=== PATIENT | male | born 1955 | race Hispanic/Latino ===

== ENCOUNTER 2021-10-05 14:48 | Inpatient (IN) | payer MEDICAID ==
[2021-10-06] MEDS: traZODone 50 MG TAB PO SCH ×2 (00:22→22:00)
[2021-10-06 01:17] LABS: Basophils # (Auto) 0.1 K/mm3 (0.0-0.1); Basophils % (Auto) 1.1 % (0.0-1.8); Eosinophils # (Auto) 0.3 K/mm3 (0.0-0.4); Eosinophils % (Auto) 3.7 % (0.0-4.3); Hematocrit 39.9 % (35.5-45.6); Hemoglobin 13.3 gm/dl (11.8-15.2); Lymphocytes # (Auto) 2.4 K/mm3 (1.2-5.4); Lymphocytes % (Auto) 28.3 % (13.4-35.0); Mean Corpuscular HGB Conc 33 % (32-34); Mean Corpuscular Volume 94 fl (84-94); Monocytes # (Auto) 0.9 K/mm3 (0.0-0.8); Monocytes % (Auto) 10.8 % (0.0-7.3); Platelet Count 190 K/mm3 (140-440); Red Blood Count 4.27 M/mm3 (3.65-5.03); Red Cell Distribution Width 13.4 % (13.2-15.2)
[2021-10-06 02:24] LABS: Alanine Aminotransferase 19 units/L (7-56); Albumin 3.8 g/dL (3.9-5); Blood Urea Nitrogen 17 mg/dL (9-20); Calcium 9.4 mg/dL (8.4-10.2); Hemolysis Index 11
[2021-10-06 02:26] LABS: BUN/Creatinine Ratio 24
[2021-10-06 02:43] LABS: Chol/HDL Ratio 4.56 %; HDL Cholesterol 48 mg/dL (40-59); LDL Cholesterol,Direct 161 mg/dL (50-130)
[2021-10-06] MEDS: NICOTINE 21 MG/24 HR PATCH TD SCH (09:50)
--- NOTE | 2021-10-06 11:23 | Consultation ---
History of Present Illness - Reason for Consult Consult date: 10/06/21 Medical management Requesting physician: NAYELI CARRASCO - History of Present Illness 65 YO Male with Vascular Dementia with behavioral disturbance, Cerebral Atherosclerosis, HTN, HLD, Mild Intermittent Asthma, Nicotine Dependence, Schizophrenia, Bipolar Disorder admitted to [facility] psych unit for psychiatric stabilization. Patient seen and evaluated in the recreation room. Patient denies fever, chills, chest pain, palpitation, adductive cough, skin rash and recent contact, no supportive COVID-19. Patient appears to be at baseline level of cognition and function. No reported nursing events. Past History Past Medical History: hypertension, hyperlipidemia, other (See HPI) Past Surgical History: No surgical history, Other (Reviewed) Social history: single. denies: smoking, alcohol abuse Family history: hypertension Medications and Allergies Allergies Allergy/AdvReac Type Severity Reaction Status Date / Time No Known Drug Allergies Allergy Unknown Verified 10/05/21 21:08 Home Medications Medication Instructions Recorded Confirmed Last Taken Type Albuterol Sulfate [Proair 90 mcg IH UNK 10/05/21 10/05/21 Unknown History Digihaler] AtorvaSTATin [Lipitor] 20 mg PO QHS 10/05/21 10/05/21 Unknown History Azithromycin [Zithromax] 250 mg PO QDAY 10/05/21 10/05/21 10/05/21 History Escitalopram [Lexapro] 1.5 tab PO DAILY 10/05/21 10/05/21 Unknown History Fenofibrate 160 mg PO DAILY 10/05/21 10/05/21 Unknown History Memantine [Namenda] 5 mg PO BID 10/05/21 10/05/21 Unknown History OLANzapine [ZyPREXA] 10 mg PO QHS 10/05/21 10/05/21 Unknown History buPROPion [Wellbutrin] 75 mg PO BID 10/05/21 10/05/21 Unknown History Active Meds: Active Medications Nicotine (Nicotine 21 Mg/24 Hr Patch) 21 mg TD QDAY [facility] Last Admin: 10/06/21 09:50 Dose: 21 mg Trazodone HCl (Trazodone 50 Mg Tab) 50 mg PO QHS [facility] Last Admin: 10/06/21 00:22 Dose: Not Given Review of Systems Constitutional: no weight loss, no weight gain, no fever, no chills Ears, nose, mouth and throat: no ear pain, no ear discharge, no tinnitis, no nose pain, no nasal congestion, no nasal discharge Cardiovascular: no chest pain, no palpitations, no rapid/irregular heart beat, no edema Respiratory: no cough, no cough with sputum, no hemoptysis, no shortness of breath Gastrointestinal: no abdominal pain, no nausea, no diarrhea, no constipation, no change in bowel habits Genitourinary Male: no hematuria, no flank pain, no discharge, no urinary frequency, no urinary hesitancy Rectal: no pain, no incontinence, no bleeding Musculoskeletal: no neck stiffness, no neck pain, no arm numbness/tingling, no low back pain, no shooting leg pain Integumentary: no rash, no pruritis, no redness, no sores, no wounds Neurological: no head injury, no weakness, no numbness, no seizures, no syncope Psychiatric: difficulties concentrating, irritability, sadness/tearfullness, mood swings Endocrine: no cold intolerance, no heat intolerance, no excessive thirst, no polydipsia, no polyuria, no nocturia Hematologic/Lymphatic: no easy bruising Allergic/Immunologic: no urticaria Exam - Constitutional Vitals: Temp Pulse Resp BP Pulse Ox 97.4 F L 74 20 143/78 97 10/05/21 21:19 10/05/21 21:19 10/05/21 21:19 10/05/21 21:19 10/05/21 21:19 General appearance: Present: mild distress - EENT Eyes: Present: PERRL ENT: hearing intact, clear oral mucosa - Neck Neck: Present: supple, normal ROM - Respiratory Respiratory effort: normal Respiratory: bilateral: CTA - Cardiovascular Heart Sounds: Present: S1 & S2. Absent: rub, click - Extremities Extremities: pulses symmetrical, No edema Peripheral Pulses: within normal limits - Abdominal General gastrointestinal: Present: soft, non-tender, non-distended, normal bowel sounds Male genitourinary: Present: normal - Integumentary Integumentary: Present: clear, warm, dry - Musculoskeletal Musculoskeletal: gait normal, strength equal bilaterally - Psychiatric Psychiatric: appropriate mood/affect, intact judgment & insight - Neurologic Neurologic: CNII-XII intact, moves all extremities Results - Labs CBC & Chem 7: 10/06/21 00:50 10/06/21 00:50 Labs: Abnormal lab results 10/06/21 10/06/21 10/06/21 Range/Units 00:50 00:50 06:47 [place] % (Auto) 10.8 H (0.0-7.3) % [place] # (Auto) 0.9 H (0.0-0.8) K/mm3 Creatinine 0.7 L (0.8-1.3) mg/dL POC Glucose 109 H (70-105) mg/dL Albumin 3.8 L (3.9-5) g/dL Cholesterol 219 H (50-199) mg/dL LDL Cholesterol Direct 161 H (50-130) mg/dL Assessment and Plan - Patient Problems (1) Vascular dementia with behavioral disturbance Current Visit: Yes Status: Acute Plan to address problem: Verbal prompting, verbal redirection, benzodiazepine therapy as clinically indicated. (2) Cerebral atherosclerosis Current Visit: Yes Status: Acute Plan to address problem: Risk factor reduction, antiplatelet therapy as clinically indicated. (3) Hypertension Current Visit: Yes Status: Acute Qualifiers: Hypertension type: primary hypertension Qualified Code(s): I10 - Essential (primary) hypertension Plan to address problem: Monitor blood pressure every shift, continue medical management (4) Hyperlipidemia Current Visit: Yes Status: Acute Qualifiers: Hyperlipidemia type: mixed hyperlipidemia Qualified Code(s): E78.2 - Mixed hyperlipidemia Plan to address problem: Statin therapy, supportive care. (5) Asthma Current Visit: Yes Status: Acute Plan to address problem: No acute exacerbation at this time, supportive care, bronchodilator therapy as clinically indicated. (6) Bipolar disorder Current Visit: Yes Status: Acute Plan to address problem: Continue medical management, supportive care. (7) Schizophrenia Current Visit: Yes Status: Acute Qualifiers: Schizophrenia type: other Qualified Code(s): F20.89 - Other schizophrenia; F20.8 - Other schizophrenia Plan to address problem: Continue medical medical management, supportive care. (8) Advance care planning Current Visit: Yes Status: Acute Plan to address problem: Disease education data, care plan discussed, diagnosis discussed, prognosis discussed, patient is full code, +30 minutes. (9) Preventative health care Current Visit: Yes Status: Acute Plan to address problem: Patient counseled regarding smoking cessation, risk factor reduction, outpatient follow-up with primary care physician for all age and risk factor appropriate screening test. +30 minutes. (10) Nicotine dependence Current Visit: Yes Status: Acute Qualifiers: Nicotine product type: cigarettes Substance use status: in withdrawal Qualified Code(s): F17.213 - Nicotine dependence, cigarettes, with withdrawal Plan to address problem: Smoke cessation counseled, nicotine transdermal patch daily, remove nightly
--- NOTE | 2021-10-06 13:23 | History and Physical Report ---
GP History & Physical - History of Present Illness Date of admission: 10/05/21 Date of Examination: 10/06/21 Reason for Admission: Danger to self, Failure of Outpatient Treatment, Severe anxiety/depression History of Present Illness: The patient was seen today. He says he was admitted for having bad thoughts, hearing things and feeling suicidal. He says he can't make out the voices, but says "it's just stuff I'm hearing." He denies a plan to harm himself. He endorses feeling depressed. He says he has a history of schizophrenia. The patient could not recall any of his meds. He denies any illicit drug use, alcohol or nicotine. PAST PSYCHIATRIC HISTORY: Diagnoses: schizophrenia Suicide attempts or Self-harm behavior: Yes Prior psychiatric hospitalizations: Denies Substance Abuse history: Denies Previous psychiatric medications tried: Could not recall Outpatient treatment: Yes PAST MEDICAL HISTORY: Family Psychiatric History: None reported SOCIAL HISTORY Marital Status: Living Arrangements: Alone Employment Status: Disabled Access to guns/weapons: Denies Education: History of Abuse: Denies Legal History: REVIEW OF SYSTEMS Constitutional: Negative for weight loss ENT: Negative for stridor Respiratory: Negative for cough or hemoptysis All other systems reviewed and are negative MENTAL STATUS General Appearance and Behavior: age appropriate, good eye contact, cooperative with questioning and polite Cooperation: Cooperative Psychomotor Behavior: within normal limits Mood: depressed Affect and affective range: Congruent with stated mood Thought Process: goal directed Thought Content: hallucinations Speech: Normal volume and Regular rate and rhythm Intellectual Functioning Average Suicidal Ideation: Yes Homicidal Ideation: Denies HI Hallucinations: Auditory Impulse Control: intact Insight and Judgment: Limited Memory: Normal Attention: Normal Orientation: alert and oriented Assessment Schizophrenia Treatment Plan Patient will be admitted for inpatient psychiatric evaluation, medication adjustment and close monitoring The patient's behavior, mood, sleep and appetite will be closely monitored. Patient will be enrolled in individual and group therapeutic sessions and encouraged to attend. Patient will be provided with a safe and structured environment. Patient's physical health needs will be addressed by the Hospitalist. Ho spitalist Consulted Labs including CBC, CMP, Lipid profile and Hemoglobin A1C ordered Social Assessment will be completed and the Pyridine Recovery Operator will work with patient and family to ensure a suitable and safe disposition Medication adjustment will be made as clinically indicated Restarted meds Usual Wellness Mormonism/Preservation: - Start Trazodone 50 mg po QHS PRN The patient agreed on the treatment plan, understood the risk, benefit, alternative treatment, potential consequence of no treatment, and gave informed consent. Legal Status: Voluntary Reaction to Hospitalization: Accepting Medications and Allergies Allergies Allergy/AdvReac Type Severity Reaction Status Date / Time No Known Drug Allergies Allergy Unknown Verified 10/05/21 21:08 Home Medications Medication Instructions Recorded Confirmed Last Taken Type Albuterol Sulfate [Proair 90 mcg IH UNK 10/05/21 10/05/21 Unknown History Digihaler] AtorvaSTATin [Lipitor] 20 mg PO QHS 10/05/21 10/05/21 Unknown History Azithromycin [Zithromax] 250 mg PO QDAY 10/05/21 10/05/21 10/05/21 History Escitalopram [Lexapro] 1.5 tab PO DAILY 10/05/21 10/05/21 Unknown History Fenofibrate 160 mg PO DAILY 10/05/21 10/05/21 Unknown History Memantine [Namenda] 5 mg PO BID 10/05/21 10/05/21 Unknown History OLANzapine [ZyPREXA] 10 mg PO QHS 10/05/21 10/05/21 Unknown History buPROPion [Wellbutrin] 75 mg PO BID 10/05/21 10/05/21 Unknown History Active Meds: Active Medications Nicotine (Nicotine 21 Mg/24 Hr Patch) 21 mg TD QDAY [facility] Last Admin: 10/06/21 09:50 Dose: 21 mg Trazodone HCl (Trazodone 50 Mg Tab) 50 mg PO QHS [facility] Last Admin: 10/06/21 00:22 Dose: Not Given Results - Results Labs/Vitals: Laboratory Last Values WBC 8.5 K/mm3 (4.5-11.0) 10/06/21 00:50 RBC 4.27 M/mm3 (3.65-5.03) 10/06/21 00:50 Hgb 13.3 gm/dl (11.8-15.2) 10/06/21 00:50 Hct 39.9 % (35.5-45.6) 10/06/21 00:50 MCV 94 fl (84-94) 10/06/21 00:50 MCH 31 pg (28-32) 10/06/21 00:50 MCHC 33 % (32-34) 10/06/21 00:50 RDW 13.4 % (13.2-15.2) 10/06/21 00:50 Plt Count 190 K/mm3 (140-440) 10/06/21 00:50 Lymph % (Auto) 28.3 % (13.4-35.0) 10/06/21 00:50 [place] % (Auto) 10.8 % (0.0-7.3) H 10/06/21 00:50 Eos % (Auto) 3.7 % (0.0-4.3) 10/06/21 00:50 Baso % (Auto) 1.1 % (0.0-1.8) 10/06/21 00:50 Lymph # (Auto) 2.4 K/mm3 (1.2-5.4) 10/06/21 00:50 [place] # (Auto) 0.9 K/mm3 (0.0-0.8) H 10/06/21 00:50 Eos # (Auto) 0.3 K/mm3 (0.0-0.4) 10/06/21 00:50 Baso # (Auto) 0.1 K/mm3 (0.0-0.1) 10/06/21 00:50 Seg Neutrophils % 56.1 % (40.0-70.0) 10/06/21 00:50 Seg Neutrophils # 4.8 K/mm3 (1.8-7.7) 10/06/21 00:50 Sodium 140 mmol/L (137-145) 10/06/21 00:50 Potassium 4.2 mmol/L (3.6-5.0) 10/06/21 00:50 Chloride 102.7 mmol/L (98-107) 10/06/21 00:50 Carbon Dioxide 26 mmol/L (22-30) 10/06/21 00:50 Anion Gap 16 mmol/L 10/06/21 00:50 BUN 17 mg/dL (9-20) 10/06/21 00:50 Creatinine 0.7 mg/dL (0.8-1.3) L 10/06/21 00:50 Estimated GFR > 60 ml/min 10/06/21 00:50 BUN/Creatinine Ratio 24 % 10/06/21 00:50 Glucose 91 mg/dL (75-100) 10/06/21 00:50 POC Glucose 109 mg/dL (70-105) H 10/06/21 06:47 Hemoglobin A1c 5.5 % (4-6) 10/06/21 00:50 Calcium 9.4 mg/dL (8.4-10.2) 10/06/21 00:50 Total Bilirubin 0.20 mg/dL (0.1-1.2) 10/06/21 00:50 AST 16 units/L (5-40) 10/06/21 00:50 ALT 19 units/L (7-56) 10/06/21 00:50 Alkaline Phosphatase 74 units/L (35-129) 10/06/21 00:50 Total Protein 6.8 g/dL (6.3-8.2) 10/06/21 00:50 Albumin 3.8 g/dL (3.9-5) L 10/06/21 00:50 Albumin/Globulin Ratio 1.3 % 10/06/21 00:50 Triglycerides 104 mg/dL (2-149) 10/06/21 00:50 Cholesterol 219 mg/dL (50-199) H 10/06/21 00:50 LDL Cholesterol Direct 161 mg/dL (50-130) H 10/06/21 00:50 HDL Cholesterol 48 mg/dL (40-59) 10/06/21 00:50 Cholesterol/HDL Ratio 4.56 % 10/06/21 00:50 TSH 1.600 mlU/mL (0.270-4.200) 10/06/21 00:50 Last Vital Signs Temp 97.4 F L 10/05/21 21:19 Pulse 74 10/05/21 21:19 Resp 20 10/05/21 21:19 BP 143/78 10/05/21 21:19 Pulse Ox 97 10/05/21 21:19 Physical Examination - Constitutional Vitals: Vital Signs Temp Pulse Resp BP Pulse Ox 97.4 F L 74 20 143/78 97 10/05/21 21:19 10/05/21 21:19 10/05/21 21:19 10/05/21 21:19 10/05/21 21:19 Temperature -Last 24 Hours Temperature 97.4 F Mental Status Exam - Vital signs Last Vital Signs Temp 97.4 F L 10/05/21 21:19 Pulse 74 10/05/21 21:19 Resp 20 10/05/21 21:19 BP 143/78 10/05/21 21:19 Pulse Ox 97 10/05/21 21:19 Physician Certification - Certification Statement Physician Certification Statement: This is an acknowledgement statement that JESUS BOOTH is a 65 year old M who requires inpatient psychiatric admission for treatment which could reasonably be expected to improve the patient's condition for Estimated period of time patient will need to remain in the hospital: [ ] Plan for post-hospital care: [ ]
[2021-10-06] MEDS ORDERED: NON-FORMULARY EACH (Albuterol Sulfate [Proair Digihaler] 90 MCG Aer.Pw.Bas) IH SCH (13:30)
[2021-10-06] MEDS ORDERED: ALBUTEROL 2.5 MG/3 ML NEBU IH PRN (13:36)
[2021-10-06] MEDS: ACETAMINOPHEN 325 MG TAB PO PRN (17:58)
[2021-10-06] MEDS: MEMANTINE 5 MG TAB PO SCH (22:00)
[2021-10-06] MEDS: buPROPion 75 MG TAB PO SCH (22:00)
[2021-10-07] MEDS: NICOTINE 21 MG/24 HR PATCH TD SCH (09:53)
[2021-10-07] MEDS: MEMANTINE 5 MG TAB PO SCH ×2 (09:53→21:52)
[2021-10-07] MEDS: ESCITALOPRAM 10 MG TAB PO SCH (09:53)
[2021-10-07] MEDS ORDERED: NON-FORMULARY EACH (Fenofibrate [Fenofibrate] 160 MG Tablet) PO SCH (10:00)
[2021-10-07] MEDS: buPROPion 75 MG TAB PO SCH ×2 (10:02→21:52)
[2021-10-07] MEDS: FENOFIBRATE 145 MG TAB PO SCH (10:36)
--- NOTE | 2021-10-07 16:39 | Progress Note ---
Subjective Date of service: 10/07/21 Principal diagnosis: Schizophrenia Subjective Comment: The patient was seen today. He says he's doing a little better. He says he slept good. The patient says he's still hearing voices but can't make them out. He endorses being depressed, but denies SI/HI. REVIEW OF SYSTEMS Constitutional: Negative for weight loss ENT: Negative for stridor Respiratory: Negative for cough or hemoptysis All other systems reviewed and are negative MENTAL STATUS General Appearance and Behavior: age appropriate, good eye contact, cooperative with questioning and polite Cooperation: Cooperative Psychomotor Behavior: within normal limits Mood: depressed Affect and affective range: Congruent with stated mood Thought Process: goal directed Thought Content: hallucinations Speech: Normal volume and Regular rate and rhythm Intellectual Functioning Average Suicidal Ideation: Denies Homicidal Ideation: Denies HI Hallucinations: Auditory Impulse Control: intact Insight and Judgment: Limited Memory: Normal Attention: Normal Orientation: alert and oriented Assessment Schizophrenia Treatment Plan Patient will be admitted for inpatient psychiatric evaluation, medication adjustment and close monitoring The patient's behavior, mood, sleep and appetite will be closely monitored. Patient will be enrolled in individual and group therapeutic sessions and encouraged to attend. Patient will be provided with a safe and structured environment. Patient's physical health needs will be addressed by the Hospitalist. Hospitalist Consulted Labs including CBC, CMP, Lipid profile and Hemoglobin A1C ordered Social Assessment will be completed and the Finance Intern will work with patient and family to ensure a suitable and safe disposition Medication adjustment will be made as clinically indicated Increase Olanzapine 15mg po qhs Usual Wellness Jewish/Preservation: - Start Trazodone 50 mg po QHS PRN The patient agreed on the treatment plan, understood the risk, benefit, alternative treatment, potential consequence of no treatment, and gave informed consent. Case staffed with Dr. Garg Medications and Allergies Allergies Allergy/AdvReac Type Severity Reaction Status Date / Time No Known Drug Allergies Allergy Unknown Verified 10/05/21 21:08 Home Medications Medication Instructions Recorded Confirmed Last Taken Type Albuterol Sulfate [Proair 90 mcg IH UNK 10/05/21 10/05/21 Unknown History Digihaler] AtorvaSTATin [Lipitor] 20 mg PO QHS 10/05/21 10/05/21 Unknown History Azithromycin [Zithromax] 250 mg PO QDAY 10/05/21 10/05/21 10/05/21 History Escitalopram [Lexapro] 1.5 tab PO DAILY 10/05/21 10/05/21 Unknown History Fenofibrate 160 mg PO DAILY 10/05/21 10/05/21 Unknown History Memantine [Namenda] 5 mg PO BID 10/05/21 10/05/21 Unknown History OLANzapine [ZyPREXA] 10 mg PO QHS 10/05/21 10/05/21 Unknown History buPROPion [Wellbutrin] 75 mg PO BID 10/05/21 10/05/21 Unknown History Active Meds: Active Medications Acetaminophen (Acetaminophen 325 Mg Tab) 650 mg PO Q6H PRN PRN Reason: Pain, Mild (1-3) Last Admin: 10/06/21 17:58 Dose: 650 mg Albuterol (Albuterol 2.5 Mg/3 Ml Nebu) 2.5 mg IH Q4H PRN PRN Reason: Shortness Of Breath Atorvastatin Calcium (Atorvastatin 20 Mg Tab) 20 mg PO QHS [facility] Last Admin: 10/06/21 22:00 Dose: 20 mg Bupropion HCl (Bupropion 75 Mg Tab) 75 mg PO BID [facility] Last Admin: 10/07/21 10:02 Dose: 75 mg Escitalopram Oxalate (Escitalopram 10 Mg Tab) 15 mg PO DAILY [facility] Last Admin: 10/07/21 09:53 Dose: 15 mg Fenofibrate (Fenofibrate 145 Mg Tab) 145 mg PO DAILY [facility] Last Admin: 10/07/21 10:36 Dose: 145 mg Memantine (Memantine 5 Mg Tab) 5 mg PO BID [facility] Last Admin: 10/07/21 09:53 Dose: 5 mg Nicotine (Nicotine 21 Mg/24 Hr Patch) 21 mg TD QDAY [facility] Last Admin: 10/07/21 09:53 Dose: 21 mg Olanzapine (Olanzapine 10 Mg Tab) 10 mg PO QHS [facility] Last Admin: 10/06/21 22:00 Dose: 10 mg Trazodone HCl (Trazodone 50 Mg Tab) 50 mg PO QHS [facility] Last Admin: 10/06/21 22:00 Dose: 50 mg Results - Results Labs/Vitals: Laboratory Last Values WBC 8.5 K/mm3 (4.5-11.0) 10/06/21 00:50 RBC 4.27 M/mm3 (3.65-5.03) 10/06/21 00:50 Hgb 13.3 gm/dl (11.8-15.2) 10/06/21 00:50 Hct 39.9 % (35.5-45.6) 10/06/21 00:50 MCV 94 fl (84-94) 10/06/21 00:50 MCH 31 pg (28-32) 10/06/21 00:50 MCHC 33 % (32-34) 10/06/21 00:50 RDW 13.4 % (13.2-15.2) 10/06/21 00:50 Plt Count 190 K/mm3 (140-440) 10/06/21 00:50 Lymph % (Auto) 28.3 % (13.4-35.0) 10/06/21 00:50 [place] % (Auto) 10.8 % (0.0-7.3) H 10/06/21 00:50 Eos % (Auto) 3.7 % (0.0-4.3) 10/06/21 00:50 Baso % (Auto) 1.1 % (0.0-1.8) 10/06/21 00:50 Lymph # (Auto) 2.4 K/mm3 (1.2-5.4) 10/06/21 00:50 [place] # (Auto) 0.9 K/mm3 (0.0-0.8) H 10/06/21 00:50 Eos # (Auto) 0.3 K/mm3 (0.0-0.4) 10/06/21 00:50 Baso # (Auto) 0.1 K/mm3 (0.0-0.1) 10/06/21 00:50 Seg Neutrophils % 56.1 % (40.0-70.0) 10/06/21 00:50 Seg Neutrophils # 4.8 K/mm3 (1.8-7.7) 10/06/21 00:50 Sodium 140 mmol/L (137-145) 10/06/21 00:50 Potassium 4.2 mmol/L (3.6-5.0) 10/06/21 00:50 Chloride 102.7 mmol/L (98-107) 10/06/21 00:50 Carbon Dioxide 26 mmol/L (22-30) 10/06/21 00:50 Anion Gap 16 mmol/L 10/06/21 00:50 BUN 17 mg/dL (9-20) 10/06/21 00:50 Creatinine 0.7 mg/dL (0.8-1.3) L 10/06/21 00:50 Estimated GFR > 60 ml/min 10/06/21 00:50 BUN/Creatinine Ratio 24 % 10/06/21 00:50 Glucose 91 mg/dL (75-100) 10/06/21 00:50 POC Glucose 109 mg/dL (70-105) H 10/06/21 06:47 Hemoglobin A1c 5.5 % (4-6) 10/06/21 00:50 Calcium 9.4 mg/dL (8.4-10.2) 10/06/21 00:50 Total Bilirubin 0.20 mg/dL (0.1-1.2) 10/06/21 00:50 AST 16 units/L (5-40) 10/06/21 00:50 ALT 19 units/L (7-56) 10/06/21 00:50 Alkaline Phosphatase 74 units/L (35-129) 10/06/21 00:50 Total Protein 6.8 g/dL (6.3-8.2) 10/06/21 00:50 Albumin 3.8 g/dL (3.9-5) L 10/06/21 00:50 Albumin/Globulin Ratio 1.3 % 10/06/21 00:50 Triglycerides 104 mg/dL (2-149) 10/06/21 00:50 Cholesterol 219 mg/dL (50-199) H 10/06/21 00:50 LDL Cholesterol Direct 161 mg/dL (50-130) H 10/06/21 00:50 HDL Cholesterol 48 mg/dL (40-59) 10/06/21 00:50 Cholesterol/HDL Ratio 4.56 % 10/06/21 00:50 TSH 1.600 mlU/mL (0.270-4.200) 10/06/21 00:50 Last Vital Signs Temp 97.8 F 10/07/21 09:41 Pulse 98 H 10/07/21 09:41 Resp 16 10/07/21 09:41 BP 129/82 10/07/21 09:41 Pulse Ox 93 10/07/21 09:41
[2021-10-07] MEDS: traZODone 50 MG TAB PO SCH (21:52)
[2021-10-08] MEDS: ESCITALOPRAM 10 MG TAB PO SCH (09:44)
[2021-10-08] MEDS: MEMANTINE 5 MG TAB PO SCH ×2 (09:44→21:50)
[2021-10-08] MEDS: buPROPion 75 MG TAB PO SCH ×2 (09:44→21:50)
[2021-10-08] MEDS: NICOTINE 21 MG/24 HR PATCH TD SCH (09:44)
[2021-10-08] MEDS: FENOFIBRATE 145 MG TAB PO SCH (09:44)
--- NOTE | 2021-10-08 09:46 | Progress Note ---
Subjective Date of service: 10/08/21 Principal diagnosis: Schizophrenia Subjective Comment: The patient was seen today. The patient sill endorses depression, and hearing voices on and off. He says he can't make out the voices. He denies SI/HI. REVIEW OF SYSTEMS Constitutional: Negative for weight loss ENT: Negative for stridor Respiratory: Negative for cough or hemoptysis All other systems reviewed and are negative MENTAL STATUS General Appearance and Behavior: age appropriate, good eye contact, cooperative with questioning and polite Cooperation: Cooperative Psychomotor Behavior: within normal limits Mood: depressed Affect and affective range: Congruent with stated mood Thought Process: goal directed Thought Content: hallucinations Speech: Normal volume and Regular rate and rhythm Intellectual Functioning Average Suicidal Ideation: Denies Homicidal Ideation: Denies HI Hallucinations: Auditory Impulse Control: intact Insight and Judgment: Limited Memory: Normal Attention: Normal Orientation: alert and oriented Assessment Schizophrenia Treatment Plan Patient will be admitted for inpatient psychiatric evaluation, medication adjus tment and close monitoring The patient's behavior, mood, sleep and appetite will be closely monitored. Patient will be enrolled in individual and group therapeutic sessions and encouraged to attend. Patient will be provided with a safe and structured environment. Patient's physical health needs will be addressed by the Hospitalist. Hospitalist Consulted Labs including CBC, CMP, Lipid profile and Hemoglobin A1C ordered Social Assessment will be completed and the Mold Stamper And Repairer will work with patient and family to ensure a suitable and safe disposition Medication adjustment will be made as clinically indicated Increase Olanzapine 15mg po qhs yesterday No changes made today Usual Wellness [employer]/Preservation: - Start Trazodone 50 mg po QHS PRN The patient agreed on the treatment plan, understood the risk, benefit, alternative treatment, potential consequence of no treatment, and gave informed consent. Case staffed with Dr. Garg Medications and Allergies Allergies Allergy/AdvReac Type Severity Reaction Status Date / Time No Known Drug Allergies Allergy Unknown Verified 10/05/21 21:08 Home Medications Medication Instructions Recorded Confirmed Last Taken Type Albuterol Sulfate [Proair 90 mcg IH UNK 10/05/21 10/05/21 Unknown History Digihaler] AtorvaSTATin [Lipitor] 20 mg PO QHS 10/05/21 10/05/21 Unknown History Azithromycin [Zithromax] 250 mg PO QDAY 10/05/21 10/05/21 10/05/21 History Escitalopram [Lexapro] 1.5 tab PO DAILY 10/05/21 10/05/21 Unknown History Fenofibrate 160 mg PO DAILY 10/05/21 10/05/21 Unknown History Memantine [Namenda] 5 mg PO BID 10/05/21 10/05/21 Unknown History OLANzapine [ZyPREXA] 10 mg PO QHS 10/05/21 10/05/21 Unknown History buPROPion [Wellbutrin] 75 mg PO BID 10/05/21 10/05/21 Unknown History Active Meds: Active Medications Acetaminophen (Acetaminophen 325 Mg Tab) 650 mg PO Q6H PRN PRN Reason: Pain, Mild (1-3) Last Admin: 10/06/21 17:58 Dose: 650 mg Albuterol (Albuterol 2.5 Mg/3 Ml Nebu) 2.5 mg IH Q4H PRN PRN Reason: Shortness Of Breath Atorvastatin Calcium (Atorvastatin 20 Mg Tab) 20 mg PO QHS [facility] Last Admin: 10/07/21 21:52 Dose: 20 mg Bupropion HCl (Bupropion 75 Mg Tab) 75 mg PO BID [facility] Last Admin: 10/07/21 21:52 Dose: 75 mg Escitalopram Oxalate (Escitalopram 10 Mg Tab) 15 mg PO DAILY [facility] Last Admin: 10/07/21 09:53 Dose: 15 mg Fenofibrate (Fenofibrate 145 Mg Tab) 145 mg PO DAILY [facility] Last Admin: 10/07/21 10:36 Dose: 145 mg Memantine (Memantine 5 Mg Tab) 5 mg PO BID [facility] Last Admin: 10/07/21 21:52 Dose: 5 mg Nicotine (Nicotine 21 Mg/24 Hr Patch) 21 mg TD QDAY [facility] Last Admin: 10/07/21 09:53 Dose: 21 mg Olanzapine (Olanzapine 7.5 Mg Tab) 15 mg PO QHS [facility] Last Admin: 10/07/21 21:52 Dose: 15 mg Trazodone HCl (Trazodone 50 Mg Tab) 50 mg PO QHS [facility] Last Admin: 10/07/21 21:52 Dose: 50 mg Results - Results Labs/Vitals: Laboratory Last Values WBC 8.5 K/mm3 (4.5-11.0) 10/06/21 00:50 RBC 4.27 M/mm3 (3.65-5.03) 10/06/21 00:50 Hgb 13.3 gm/dl (11.8-15.2) 10/06/21 00:50 Hct 39.9 % (35.5-45.6) 10/06/21 00:50 MCV 94 fl (84-94) 10/06/21 00:50 MCH 31 pg (28-32) 10/06/21 00:50 MCHC 33 % (32-34) 10/06/21 00:50 RDW 13.4 % (13.2-15.2) 10/06/21 00:50 Plt Count 190 K/mm3 (140-440) 10/06/21 00:50 Lymph % (Auto) 28.3 % (13.4-35.0) 10/06/21 00:50 [place] % (Auto) 10.8 % (0.0-7.3) H 10/06/21 00:50 Eos % (Auto) 3.7 % (0.0-4.3) 10/06/21 00:50 Baso % (Auto) 1.1 % (0.0-1.8) 10/06/21 00:50 Lymph # (Auto) 2.4 K/mm3 (1.2-5.4) 10/06/21 00:50 [place] # (Auto) 0.9 K/mm3 (0.0-0.8) H 10/06/21 00:50 Eos # (Auto) 0.3 K/mm3 (0.0-0.4) 10/06/21 00:50 Baso # (Auto) 0.1 K/mm3 (0.0-0.1) 10/06/21 00:50 Seg Neutrophils % 56.1 % (40.0-70.0) 10/06/21 00:50 Seg Neutrophils # 4.8 K/mm3 (1.8-7.7) 10/06/21 00:50 Sodium 140 mmol/L (137-145) 10/06/21 00:50 Potassium 4.2 mmol/L (3.6-5.0) 10/06/21 00:50 Chloride 102.7 mmol/L (98-107) 10/06/21 00:50 Carbon Dioxide 26 mmol/L (22-30) 10/06/21 00:50 Anion Gap 16 mmol/L 10/06/21 00:50 BUN 17 mg/dL (9-20) 10/06/21 00:50 Creatinine 0.7 mg/dL (0.8-1.3) L 10/06/21 00:50 Estimated GFR > 60 ml/min 10/06/21 00:50 BUN/Creatinine Ratio 24 % 10/06/21 00:50 Glucose 91 mg/dL (75-100) 10/06/21 00:50 POC Glucose 109 mg/dL (70-105) H 10/06/21 06:47 Hemoglobin A1c 5.5 % (4-6) 10/06/21 00:50 Calcium 9.4 mg/dL (8.4-10.2) 10/06/21 00:50 Total Bilirubin 0.20 mg/dL (0.1-1.2) 10/06/21 00:50 AST 16 units/L (5-40) 10/06/21 00:50 ALT 19 units/L (7-56) 10/06/21 00:50 Alkaline Phosphatase 74 units/L (35-129) 10/06/21 00:50 Total Protein 6.8 g/dL (6.3-8.2) 10/06/21 00:50 Albumin 3.8 g/dL (3.9-5) L 10/06/21 00:50 Albumin/Globulin Ratio 1.3 % 10/06/21 00:50 Triglycerides 104 mg/dL (2-149) 10/06/21 00:50 Cholesterol 219 mg/dL (50-199) H 10/06/21 00:50 LDL Cholesterol Direct 161 mg/dL (50-130) H 10/06/21 00:50 HDL Cholesterol 48 mg/dL (40-59) 10/06/21 00:50 Cholesterol/HDL Ratio 4.56 % 10/06/21 00:50 TSH 1.600 mlU/mL (0.270-4.200) 10/06/21 00:50 Last Vital Signs Temp 97.5 F L 10/07/21 19:53 Pulse 85 10/07/21 19:53 Resp 18 10/07/21 19:53 BP 150/76 10/07/21 19:53 Pulse Ox 93 10/07/21 19:53
--- NOTE | 2021-10-08 20:01 | Progress Note ---
Assessment and Plan - Patient Problems (1) Vascular dementia with behavioral disturbance Current Visit: Yes Status: Acute Plan to address problem: Verbal prompting, verbal redirection, benzodiazepine therapy as clinically indicated. (2) Cerebral atherosclerosis Current Visit: Yes Status: Acute Plan to address problem: Risk factor reduction, antiplatelet therapy as clinically indicated. (3) Hypertension Current Visit: Yes Status: Acute Qualifiers: Hypertension type: primary hypertension Qualified Code(s): I10 - Essential (primary) hypertension Plan to address problem: Monitor blood pressure every shift, continue medical management (4) Hyperlipidemia Current Visit: Yes Status: Acute Qualifiers: Hyperlipidemia type: mixed hyperlipidemia Qualified Code(s): E78.2 - Mixed hyperlipidemia Plan to address problem: Statin therapy, supportive care. (5) Asthma Current Visit: Yes Status: Acute Plan to address problem: No acute exacerbation at this time, supportive care, bronchodilator therapy as clinically indicated. (6) Bipolar disorder Current Visit: Yes Status: Acute Plan to address problem: Continue medical management, supportive care. (7) Schizophrenia Current Visit: Yes Status: Acute Qualifiers: Schizophrenia type: other Qualified Code(s): F20.89 - Other schizophrenia; F20.8 - Other schizophrenia Plan to address problem: Continue medical medical management, supportive care. (8) Advance care planning Current Visit: Yes Status: Acute Plan to address problem: Disease education data, care plan discussed, diagnosis discussed, prognosis discussed, patient is full code, +30 minutes. (9) Preventative health care Current Visit: Yes Status: Acute Plan to address problem: Patient counseled regarding smoking cessation, risk factor reduction, outpatient follow-up with primary care physician for all age and risk factor appropriate screening test. +30 minutes. (10) Nicotine dependence Current Visit: Yes Status: Acute Qualifiers: Nicotine product type: cigarettes Substance use status: in withdrawal Qualified Code(s): F17.213 - Nicotine dependence, cigarettes, with withdrawal Plan to address problem: Smoke cessation counseled, nicotine transdermal patch daily, remove nightly History Interval history: 65 YO Male with Vascular Dementia with behavioral disturbance, Cerebral Atherosclerosis, HTN, HLD, Mild Intermittent Asthma, Nicotine Dependence, Schizophrenia, Bipolar Disorder admitted to [facility] psych unit for psychiatric stabilization. Patient seen and evaluated in the recreation room. Patient appears to be at baseline level of cognition and function. No reported nursing events. Hospitalist Physical - Constitutional Vitals: Temp Pulse Resp BP Pulse Ox 97.0 F L 75 18 128/70 92 10/08/21 08:02 10/08/21 08:02 10/08/21 08:02 10/08/21 08:02 10/08/21 08:02 General appearance: Present: mild distress - EENT Eyes: Present: PERRL ENT: hearing decreased - Neck Neck: Present: supple - Respiratory Respiratory effort: normal Respiratory: bilateral: CTA - Cardiovascular Rhythm: regular - Extremities Extremities: no ischemia Peripheral Pulses: within normal limits - Abdominal General gastrointestinal: soft, non-tender, non-distended - Integumentary Integumentary: Present: clear, dry - Psychiatric Psychiatric: cooperative - Neurologic Neurologic: CNII-XII intact Results - Labs CBC & Chem 7: 10/06/21 00:50 10/06/21 00:50 Labs: Laboratory Last Values WBC 8.5 K/mm3 (4.5-11.0) 10/06/21 00:50 RBC 4.27 M/mm3 (3.65-5.03) 10/06/21 00:50 Hgb 13.3 gm/dl (11.8-15.2) 10/06/21 00:50 Hct 39.9 % (35.5-45.6) 10/06/21 00:50 MCV 94 fl (84-94) 10/06/21 00:50 MCH 31 pg (28-32) 10/06/21 00:50 MCHC 33 % (32-34) 10/06/21 00:50 RDW 13.4 % (13.2-15.2) 10/06/21 00:50 Plt Count 190 K/mm3 (140-440) 10/06/21 00:50 Lymph % (Auto) 28.3 % (13.4-35.0) 10/06/21 00:50 [place] % (Auto) 10.8 % (0.0-7.3) H 10/06/21 00:50 Eos % (Auto) 3.7 % (0.0-4.3) 10/06/21 00:50 Baso % (Auto) 1.1 % (0.0-1.8) 10/06/21 00:50 Lymph # (Auto) 2.4 K/mm3 (1.2-5.4) 10/06/21 00:50 [place] # (Auto) 0.9 K/mm3 (0.0-0.8) H 10/06/21 00:50 Eos # (Auto) 0.3 K/mm3 (0.0-0.4) 10/06/21 00:50 Baso # (Auto) 0.1 K/mm3 (0.0-0.1) 10/06/21 00:50 Seg Neutrophils % 56.1 % (40.0-70.0) 10/06/21 00:50 Seg Neutrophils # 4.8 K/mm3 (1.8-7.7) 10/06/21 00:50 Sodium 140 mmol/L (137-145) 10/06/21 00:50 Potassium 4.2 mmol/L (3.6-5.0) 10/06/21 00:50 Chloride 102.7 mmol/L (98-107) 10/06/21 00:50 Carbon Dioxide 26 mmol/L (22-30) 10/06/21 00:50 Anion Gap 16 mmol/L 10/06/21 00:50 BUN 17 mg/dL (9-20) 10/06/21 00:50 Creatinine 0.7 mg/dL (0.8-1.3) L 10/06/21 00:50 Estimated GFR > 60 ml/min 10/06/21 00:50 BUN/Creatinine Ratio 24 % 10/06/21 00:50 Glucose 91 mg/dL (75-100) 10/06/21 00:50 POC Glucose 109 mg/dL (70-105) H 10/06/21 06:47 Hemoglobin A1c 5.5 % (4-6) 10/06/21 00:50 Calcium 9.4 mg/dL (8.4-10.2) 10/06/21 00:50 Total Bilirubin 0.20 mg/dL (0.1-1.2) 10/06/21 00:50 AST 16 units/L (5-40) 10/06/21 00:50 ALT 19 units/L (7-56) 10/06/21 00:50 Alkaline Phosphatase 74 units/L (35-129) 10/06/21 00:50 Total Protein 6.8 g/dL (6.3-8.2) 10/06/21 00:50 Albumin 3.8 g/dL (3.9-5) L 10/06/21 00:50 Albumin/Globulin Ratio 1.3 % 10/06/21 00:50 Triglycerides 104 mg/dL (2-149) 10/06/21 00:50 Cholesterol 219 mg/dL (50-199) H 10/06/21 00:50 LDL Cholesterol Direct 161 mg/dL (50-130) H 10/06/21 00:50 HDL Cholesterol 48 mg/dL (40-59) 10/06/21 00:50 Cholesterol/HDL Ratio 4.56 % 10/06/21 00:50 TSH 1.600 mlU/mL (0.270-4.200) 10/06/21 00:50 Zambrano/IV: Voiding Method Toilet Active Medications - Current Medications Current Medications: Generic Name Dose Route Start Last Admin Trade Name Freq PRN Reason Stop Dose Admin Acetaminophen 650 mg 10/06/21 15:37 10/06/21 17:58 Acetaminophen 325 Mg Tab PO 650 mg Q6H PRN Administration Pain, Mild (1-3) Albuterol 2.5 mg 10/06/21 13:36 Albuterol 2.5 Mg/3 Ml Nebu IH Q4H PRN Shortness Of Breath Atorvastatin Calcium 20 mg 10/06/21 22:00 10/07/21 21:52 Atorvastatin 20 Mg Tab PO 20 mg QHS RABIA Administration Bupropion HCl 75 mg 10/06/21 22:00 10/08/21 09:44 Bupropion 75 Mg Tab PO 75 mg BID RABIA Administration Escitalopram Oxalate 15 mg 10/07/21 10:00 10/08/21 09:44 Escitalopram 10 Mg Tab PO 15 mg DAILY RABIA Administration Fenofibrate 145 mg 10/07/21 10:00 10/08/21 09:44 Fenofibrate 145 Mg Tab PO 145 mg DAILY RABIA Administration Memantine 5 mg 10/06/21 22:00 10/08/21 09:44 Memantine 5 Mg Tab PO 5 mg BID RABIA Administration Nicotine 21 mg 10/06/21 10:00 10/08/21 09:44 Nicotine 21 Mg/24 Hr Patch TD 21 mg QDAY RABIA Administration Olanzapine 15 mg 10/07/21 22:00 10/07/21 21:52 Olanzapine 7.5 Mg Tab PO 15 mg QHS RABIA Administration Trazodone HCl 50 mg 10/05/21 22:00 10/07/21 21:52 Trazodone 50 Mg Tab PO 50 mg QHS ARBIA Administration Nutrition/Malnutrition Assess - Dietary Evaluation Nutrition/Malnutrition Findings: Nutrition Notes Start: 10/07/21 18:00 Freq: Status: Active Protocol: Document 10/07/21 18:00 ELENA (Rec: 10/07/21 18:10 ELENA [id number]) Nutrition Notes Need for Assessment generated from: MD Order Initial or Follow up Assessment Other Pertinent Diagnosis Schizophrenia. Current Diet Regular Diet (since B 10/06). Labs/Tests 10/07: Crea 0.7. Pertinent Medications 10/07: Nutritionally unremarkable. 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 Weight Status Overweight Subjective/Other Information RD consult for Poor Oral Intake assessment. Pt's PO intake of meals has been Good (100%) and well tolerated, according to ADL notes. Pr is on Room Air, O2 saturation @ 93%, according to Vital Signs notes. Percent of energy/protein needs met: Prescribed Regular Diet provides for energy/protein needs (2,289 Kcal/89 g) during LOS. Burn Absent Trauma Absent GI Symptoms None Food Allergy No Skin Integrity/Comment Assessment WNL. 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 No Is Patient Ambulatory and/or Out of Bed Yes REE-([place]-St. Jeor-ambulatory/OOB) [ 2355.977 NUTR.MSJOOB] Calculation Used for Recommendations [place]-St Jeor Additional Notes Protein: 0.8-1 g/Kg ABW; 76-95 g/day. Fluids: 1 ml/Kcal, or as per MD. Nutrition Intervention Change Diet Order: Continue Regular Diet as tolerated. Follow-Up By: 10/14/21 Additional Comments Continue monitoring food tolerance, %PO intake of meals , and BM.
--- NOTE | 2021-10-08 20:02 | Progress Note ---
Assessment and Plan - Patient Problems (1) Vascular dementia with behavioral disturbance Current Visit: Yes Status: Acute Plan to address problem: Verbal prompting, verbal redirection, benzodiazepine therapy as clinically indicated. (2) Cerebral atherosclerosis Current Visit: Yes Status: Acute Plan to address problem: Risk factor reduction, antiplatelet therapy as clinically indicated. (3) Hypertension Current Visit: Yes Status: Acute Qualifiers: Hypertension type: primary hypertension Qualified Code(s): I10 - Essential (primary) hypertension Plan to address problem: Monitor blood pressure every shift, continue medical management (4) Hyperlipidemia Current Visit: Yes Status: Acute Qualifiers: Hyperlipidemia type: mixed hyperlipidemia Qualified Code(s): E78.2 - Mixed hyperlipidemia Plan to address problem: Statin therapy, supportive care. (5) Asthma Current Visit: Yes Status: Acute Plan to address problem: No acute exacerbation at this time, supportive care, bronchodilator therapy as clinically indicated. (6) Bipolar disorder Current Visit: Yes Status: Acute Plan to address problem: Continue medical management, supportive care. (7) Schizophrenia Current Visit: Yes Status: Acute Qualifiers: Schizophrenia type: other Qualified Code(s): F20.89 - Other schizophrenia; F20.8 - Other schizophrenia Plan to address problem: Continue medical medical management, supportive care. (8) Advance care planning Current Visit: Yes Status: Acute Plan to address problem: Disease education data, care plan discussed, diagnosis discussed, prognosis discussed, patient is full code, +30 minutes. (9) Preventative health care Current Visit: Yes Status: Acute Plan to address problem: Patient counseled regarding smoking cessation, risk factor reduction, outpatient follow-up with primary care physician for all age and risk factor appropriate screening test. +30 minutes. (10) Nicotine dependence Current Visit: Yes Status: Acute Qualifiers: Nicotine product type: cigarettes Substance use status: in withdrawal Qualified Code(s): F17.213 - Nicotine dependence, cigarettes, with withdrawal Plan to address problem: Smoke cessation counseled, nicotine transdermal patch daily, remove nightly History Interval history: 65 YO Male with Vascular Dementia with behavioral disturbance, Cerebral Atherosclerosis, HTN, HLD, Mild Intermittent Asthma, Nicotine Dependence, Schizophrenia, Bipolar Disorder admitted to [facility] psych unit for psychiatric stabilization. Patient seen and evaluated in the recreation room. Patient appears to be at baseline level of cognition and function. No reported nursing events. Hospitalist Physical - Constitutional Vitals: Temp Pulse Resp BP Pulse Ox 97.0 F L 75 18 128/70 92 10/08/21 08:02 10/08/21 08:02 10/08/21 08:02 10/08/21 08:02 10/08/21 08:02 General appearance: Present: mild distress - EENT Eyes: Present: PERRL, EOM intact ENT: hearing decreased - Neck Neck: Present: supple - Respiratory Respiratory effort: normal Respiratory: bilateral: CTA - Cardiovascular Rhythm: regular Heart Sounds: Present: S1 & S2 - Extremities Extremities: no ischemia Peripheral Pulses: within normal limits - Abdominal General gastrointestinal: soft, non-tender, non-distended - Integumentary Integumentary: Present: dry - Psychiatric Psychiatric: cooperative - Neurologic Neurologic: CNII-XII intact Results - Labs CBC & Chem 7: 10/06/21 00:50 10/06/21 00:50 Labs: Laboratory Last Values WBC 8.5 K/mm3 (4.5-11.0) 10/06/21 00:50 RBC 4.27 M/mm3 (3.65-5.03) 10/06/21 00:50 Hgb 13.3 gm/dl (11.8-15.2) 10/06/21 00:50 Hct 39.9 % (35.5-45.6) 10/06/21 00:50 MCV 94 fl (84-94) 10/06/21 00:50 MCH 31 pg (28-32) 10/06/21 00:50 MCHC 33 % (32-34) 10/06/21 00:50 RDW 13.4 % (13.2-15.2) 10/06/21 00:50 Plt Count 190 K/mm3 (140-440) 10/06/21 00:50 Lymph % (Auto) 28.3 % (13.4-35.0) 10/06/21 00:50 [place] % (Auto) 10.8 % (0.0-7.3) H 10/06/21 00:50 Eos % (Auto) 3.7 % (0.0-4.3) 10/06/21 00:50 Baso % (Auto) 1.1 % (0.0-1.8) 10/06/21 00:50 Lymph # (Auto) 2.4 K/mm3 (1.2-5.4) 10/06/21 00:50 [place] # (Auto) 0.9 K/mm3 (0.0-0.8) H 10/06/21 00:50 Eos # (Auto) 0.3 K/mm3 (0.0-0.4) 10/06/21 00:50 Baso # (Auto) 0.1 K/mm3 (0.0-0.1) 10/06/21 00:50 Seg Neutrophils % 56.1 % (40.0-70.0) 10/06/21 00:50 Seg Neutrophils # 4.8 K/mm3 (1.8-7.7) 10/06/21 00:50 Sodium 140 mmol/L (137-145) 10/06/21 00:50 Potassium 4.2 mmol/L (3.6-5.0) 10/06/21 00:50 Chloride 102.7 mmol/L (98-107) 10/06/21 00:50 Carbon Dioxide 26 mmol/L (22-30) 10/06/21 00:50 Anion Gap 16 mmol/L 10/06/21 00:50 BUN 17 mg/dL (9-20) 10/06/21 00:50 Creatinine 0.7 mg/dL (0.8-1.3) L 10/06/21 00:50 Estimated GFR > 60 ml/min 10/06/21 00:50 BUN/Creatinine Ratio 24 % 10/06/21 00:50 Glucose 91 mg/dL (75-100) 10/06/21 00:50 POC Glucose 109 mg/dL (70-105) H 10/06/21 06:47 Hemoglobin A1c 5.5 % (4-6) 10/06/21 00:50 Calcium 9.4 mg/dL (8.4-10.2) 10/06/21 00:50 Total Bilirubin 0.20 mg/dL (0.1-1.2) 10/06/21 00:50 AST 16 units/L (5-40) 10/06/21 00:50 ALT 19 units/L (7-56) 10/06/21 00:50 Alkaline Phosphatase 74 units/L (35-129) 10/06/21 00:50 Total Protein 6.8 g/dL (6.3-8.2) 10/06/21 00:50 Albumin 3.8 g/dL (3.9-5) L 10/06/21 00:50 Albumin/Globulin Ratio 1.3 % 10/06/21 00:50 Triglycerides 104 mg/dL (2-149) 10/06/21 00:50 Cholesterol 219 mg/dL (50-199) H 10/06/21 00:50 LDL Cholesterol Direct 161 mg/dL (50-130) H 10/06/21 00:50 HDL Cholesterol 48 mg/dL (40-59) 10/06/21 00:50 Cholesterol/HDL Ratio 4.56 % 10/06/21 00:50 TSH 1.600 mlU/mL (0.270-4.200) 10/06/21 00:50 Zambrano/IV: Voiding Method Toilet Active Medications - Current Medications Current Medications: Generic Name Dose Route Start Last Admin Trade Name Freq PRN Reason Stop Dose Admin Acetaminophen 650 mg 10/06/21 15:37 10/06/21 17:58 Acetaminophen 325 Mg Tab PO 650 mg Q6H PRN Administration Pain, Mild (1-3) Albuterol 2.5 mg 10/06/21 13:36 Albuterol 2.5 Mg/3 Ml Nebu IH Q4H PRN Shortness Of Breath Atorvastatin Calcium 20 mg 10/06/21 22:00 10/07/21 21:52 Atorvastatin 20 Mg Tab PO 20 mg QHS RABIA Administration Bupropion HCl 75 mg 10/06/21 22:00 10/08/21 09:44 Bupropion 75 Mg Tab PO 75 mg BID RABIA Administration Escitalopram Oxalate 15 mg 10/07/21 10:00 10/08/21 09:44 Escitalopram 10 Mg Tab PO 15 mg DAILY RABIA Administration Fenofibrate 145 mg 10/07/21 10:00 10/08/21 09:44 Fenofibrate 145 Mg Tab PO 145 mg DAILY RABIA Administration Memantine 5 mg 10/06/21 22:00 10/08/21 09:44 Memantine 5 Mg Tab PO 5 mg BID RABIA Administration Nicotine 21 mg 10/06/21 10:00 10/08/21 09:44 Nicotine 21 Mg/24 Hr Patch TD 21 mg QDAY RABIA Administration Olanzapine 15 mg 10/07/21 22:00 10/07/21 21:52 Olanzapine 7.5 Mg Tab PO 15 mg QHS RABIA Administration Trazodone HCl 50 mg 10/05/21 22:00 10/07/21 21:52 Trazodone 50 Mg Tab PO 50 mg QHS RABIA Administration Nutrition/Malnutrition Assess - Dietary Evaluation Nutrition/Malnutrition Findings: Nutrition Notes Start: 10/07/21 18:00 Freq: Status: Active Protocol: Document 10/07/21 18:00 ELENA (Rec: 10/07/21 18:10 ELENA [email or web address]) Nutrition Notes Need for Assessment generated from: MD Order Initial or Follow up Assessment Other Pertinent Diagnosis Schizophrenia. Current Diet Regular Diet (since B 10/06). Labs/Tests 10/07: Crea 0.7. Pertinent Medications 10/07: Nutritionally unremarkable. 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 Weight Status Overweight Subjective/Other Information RD consult for Poor Oral Intake assessment. Pt's PO intake of meals has been Good (100%) and well tolerated, according to ADL notes. Pr is on Room Air, O2 saturation @ 93%, according to Vital Signs notes. Percent of energy/protein needs met: Prescribed Regular Diet provides for energy/protein needs (2,289 Kcal/89 g) during LOS. Burn Absent Trauma Absent GI Symptoms None Food Allergy No Skin Integrity/Comment Assessment WNL. 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 No Is Patient Ambulatory and/or Out of Bed Yes REE-([place]-St. Jeor-ambulatory/OOB) [ 2355.977 NUTR.MSJOOB] Calculation Used for Recommendations [place]-St or Additional Notes Protein: 0.8-1 g/Kg ABW; 76-95 g/day. Fluids: 1 ml/Kcal, or as per MD. Nutrition Intervention Change Diet Order: Continue Regular Diet as tolerated. Follow-Up By: 10/14/21 Additional Comments Continue monitoring food tolerance, %PO intake of meals , and BM.
[2021-10-08] MEDS: traZODone 50 MG TAB PO SCH (21:50)
[2021-10-09] MEDS: ESCITALOPRAM 10 MG TAB PO SCH (11:45)
[2021-10-09] MEDS: NICOTINE 21 MG/24 HR PATCH TD SCH (11:45)
[2021-10-09] MEDS: FENOFIBRATE 145 MG TAB PO SCH (11:46)
[2021-10-09] MEDS: MEMANTINE 5 MG TAB PO SCH ×2 (11:46→21:53)
[2021-10-09] MEDS: buPROPion 75 MG TAB PO SCH ×2 (12:27→22:22)
--- NOTE | 2021-10-09 12:56 | Progress Note ---
Subjective Date of service: 10/09/21 Principal diagnosis: Schizophrenia Subjective Comment: The patient was seen today. He presents with depressive mood, and isolating " mood not too good today." He reports anxiety rates as 6/10, continues to have auditory hallucination but non-commanding. REVIEW OF SYSTEMS Constitutional: Negative for weight loss ENT: Negative for stridor Respiratory: Negative for cough or hemoptysis All other systems reviewed and are negative MENTAL STATUS General Appearance and Behavior: age appropriate, good eye contact, cooperative with questioning and polite Cooperation: Cooperative Psychomotor Behavior: within normal limits Mood: "anxious" Affect and affective range: Congruent with stated mood Thought Process: goal directed Thought Content: hallucinations Speech: Normal volume and Regular rate and rhythm Intellectual Functioning Average Suicidal Ideation: Denies Homicidal Ideation: Denies HI Hallucinations: Auditory Impulse Control: intact Insight and Judgment: Limited Memory: Normal Attention: Normal Orientation: alert and oriented Assessment Schizophrenia Treatment Plan Patient will be admitted for inpatient psychiatric evaluation, medication adjustment and close monitoring The patient's behavior, mood, sleep and appetite will be closely monitored. Patient will be enrolled in individual and group therapeutic sessions and encouraged to attend. Patient will be provided with a safe and structured environment. Patient's physical health needs will be addressed by the Hospitalist. Hospitalist Consulted Labs including CBC, CMP, Lipid profile and Hemoglobin A1C ordered Social Assessment will be completed and the Contract Admin will work with patient and family to ensure a suitable and safe disposition Medication adjustment will be made as clinically indicated Continue Olanzapine 15mg po qhs Start Vistaril 25mg po Q6hrs PRN Usual Wellness [facility]: - Start Trazodone 50 mg po QHS PRN The patient agreed on the treatment plan, understood the risk, benefit, alternative treatment, potential consequence of no treatment, and gave informed consent. Case staffed with Dr. Garg Medications and Allergies Medications and Allergies Allergies Allergy/AdvReac Type Severity Reaction Status Date / Time No Known Drug Allergies Allergy Unknown Verified 10/05/21 21:08 Home Medications Medication Instructions Recorded Confirmed Last Taken Type Albuterol Sulfate [Proair 90 mcg IH UNK 10/05/21 10/05/21 Unknown History Digihaler] AtorvaSTATin [Lipitor] 20 mg PO QHS 10/05/21 10/05/21 Unknown History Azithromycin [Zithromax] 250 mg PO QDAY 10/05/21 10/05/21 10/05/21 History Escitalopram [Lexapro] 1.5 tab PO DAILY 10/05/21 10/05/21 Unknown History Fenofibrate 160 mg PO DAILY 10/05/21 10/05/21 Unknown History Memantine [Namenda] 5 mg PO BID 10/05/21 10/05/21 Unknown History OLANzapine [ZyPREXA] 10 mg PO QHS 10/05/21 10/05/21 Unknown History buPROPion [Wellbutrin] 75 mg PO BID 10/05/21 10/05/21 Unknown History Active Meds: Active Medications Acetaminophen (Acetaminophen 325 Mg Tab) 650 mg PO Q6H PRN PRN Reason: Pain, Mild (1-3) Last Admin: 10/06/21 17:58 Dose: 650 mg Albuterol (Albuterol 2.5 Mg/3 Ml Nebu) 2.5 mg IH Q4H PRN PRN Reason: Shortness Of Breath Atorvastatin Calcium (Atorvastatin 20 Mg Tab) 20 mg PO QHS [facility] Last Admin: 10/08/21 21:50 Dose: 20 mg Bupropion HCl (Bupropion 75 Mg Tab) 75 mg PO BID [facility] Last Admin: 10/09/21 12:27 Dose: 75 mg Escitalopram Oxalate (Escitalopram 10 Mg Tab) 15 mg PO DAILY [facility] Last Admin: 10/09/21 11:45 Dose: 15 mg Fenofibrate (Fenofibrate 145 Mg Tab) 145 mg PO DAILY [facility] Last Admin: 10/09/21 11:46 Dose: 145 mg Memantine (Memantine 5 Mg Tab) 5 mg PO BID [facility] Last Admin: 10/09/21 11:46 Dose: 5 mg Nicotine (Nicotine 21 Mg/24 Hr Patch) 21 mg TD QDAY [facility] Last Admin: 10/09/21 11:45 Dose: 21 mg Olanzapine (Olanzapine 7.5 Mg Tab) 15 mg PO QHS [facility] Last Admin: 10/08/21 21:50 Dose: 15 mg Trazodone HCl (Trazodone 50 Mg Tab) 50 mg PO QHS [facility] Last Admin: 10/08/21 21:50 Dose: 50 mg Results - Results Labs/Vitals: Laboratory Last Values WBC 8.5 K/mm3 (4.5-11.0) 10/06/21 00:50 RBC 4.27 M/mm3 (3.65-5.03) 10/06/21 00:50 Hgb 13.3 gm/dl (11.8-15.2) 10/06/21 00:50 Hct 39.9 % (35.5-45.6) 10/06/21 00:50 MCV 94 fl (84-94) 10/06/21 00:50 MCH 31 pg (28-32) 10/06/21 00:50 MCHC 33 % (32-34) 10/06/21 00:50 RDW 13.4 % (13.2-15.2) 10/06/21 00:50 Plt Count 190 K/mm3 (140-440) 10/06/21 00:50 Lymph % (Auto) 28.3 % (13.4-35.0) 10/06/21 00:50 [place] % (Auto) 10.8 % (0.0-7.3) H 10/06/21 00:50 Eos % (Auto) 3.7 % (0.0-4.3) 10/06/21 00:50 Baso % (Auto) 1.1 % (0.0-1.8) 10/06/21 00:50 Lymph # (Auto) 2.4 K/mm3 (1.2-5.4) 10/06/21 00:50 [place] # (Auto) 0.9 K/mm3 (0.0-0.8) H 10/06/21 00:50 Eos # (Auto) 0.3 K/mm3 (0.0-0.4) 10/06/21 00:50 Baso # (Auto) 0.1 K/mm3 (0.0-0.1) 10/06/21 00:50 Seg Neutrophils % 56.1 % (40.0-70.0) 10/06/21 00:50 Seg Neutrophils # 4.8 K/mm3 (1.8-7.7) 10/06/21 00:50 Sodium 140 mmol/L (137-145) 10/06/21 00:50 Potassium 4.2 mmol/L (3.6-5.0) 10/06/21 00:50 Chloride 102.7 mmol/L (98-107) 10/06/21 00:50 Carbon Dioxide 26 mmol/L (22-30) 10/06/21 00:50 Anion Gap 16 mmol/L 10/06/21 00:50 BUN 17 mg/dL (9-20) 10/06/21 00:50 Creatinine 0.7 mg/dL (0.8-1.3) L 10/06/21 00:50 Estimated GFR > 60 ml/min 10/06/21 00:50 BUN/Creatinine Ratio 24 % 10/06/21 00:50 Glucose 91 mg/dL (75-100) 10/06/21 00:50 POC Glucose 109 mg/dL (70-105) H 10/06/21 06:47 Hemoglobin A1c 5.5 % (4-6) 10/06/21 00:50 Calcium 9.4 mg/dL (8.4-10.2) 10/06/21 00:50 Total Bilirubin 0.20 mg/dL (0.1-1.2) 10/06/21 00:50 AST 16 units/L (5-40) 10/06/21 00:50 ALT 19 units/L (7-56) 10/06/21 00:50 Alkaline Phosphatase 74 units/L (35-129) 10/06/21 00:50 Total Protein 6.8 g/dL (6.3-8.2) 10/06/21 00:50 Albumin 3.8 g/dL (3.9-5) L 10/06/21 00:50 Albumin/Globulin Ratio 1.3 % 10/06/21 00:50 Triglycerides 104 mg/dL (2-149) 10/06/21 00:50 Cholesterol 219 mg/dL (50-199) H 10/06/21 00:50 LDL Cholesterol Direct 161 mg/dL (50-130) H 10/06/21 00:50 HDL Cholesterol 48 mg/dL (40-59) 10/06/21 00:50 Cholesterol/HDL Ratio 4.56 % 10/06/21 00:50 TSH 1.600 mlU/mL (0.270-4.200) 10/06/21 00:50 Last Vital Signs Temp 97.5 F L 10/08/21 21:15 Pulse 76 10/08/21 21:15 Resp 16 10/08/21 21:15 BP 142/74 10/08/21 21:15 Pulse Ox 92 10/08/21 21:15
[2021-10-09] MEDS ORDERED: hydrOXYzine PAMOATE 25 MG CAP PO PRN (13:00)
[2021-10-09] MEDS: traZODone 50 MG TAB PO SCH (21:52)
[2021-10-10] MEDS: NICOTINE 21 MG/24 HR PATCH TD SCH (09:17)
[2021-10-10] MEDS: FENOFIBRATE 145 MG TAB PO SCH (09:18)
[2021-10-10] MEDS: MEMANTINE 5 MG TAB PO SCH ×2 (09:18→22:17)
--- NOTE | 2021-10-10 10:02 | Progress Note ---
Subjective Date of service: 10/10/21 Principal diagnosis: Schizophrenia Subjective Comment: 10/10: The patient was seen today. The patient states depression and anxiety is better. he continues to be isolative. He states sleep and appetite as good. he denies any current suicidal/homicidal ideation and denies hallucinations. 10/09:The patient was seen today. He presents with depressive mood, and isolating " mood not too good today." He reports anxiety rates as 6/10, c ontinues to have auditory hallucination but non-commanding. REVIEW OF SYSTEMS Constitutional: Negative for weight loss ENT: Negative for stridor Respiratory: Negative for cough or hemoptysis All other systems reviewed and are negative MENTAL STATUS General Appearance and Behavior: age appropriate, good eye contact, cooperative with questioning and polite Cooperation: Cooperative Psychomotor Behavior: within normal limits Mood: ok Affect and affective range: Congruent with stated mood Thought Process: goal directed Thought Content: reality oriented Speech: Normal volume and Regular rate and rhythm Intellectual Functioning Average Suicidal Ideation: Denies Homicidal Ideation: Denies HI Hallucinations: Denies Impulse Control: intact Insight and Judgment: Limited Memory: Normal Attention: Normal Orientation: alert and oriented Assessment Schizophrenia Treatment Plan Patient will be admitted for inpatient psychiatric evaluation, medication adjustment and close monitoring The patient's behavior, mood, sleep and appetite will be closely monitored. Patient will be enrolled in individual and group therapeutic sessions and encouraged to attend. Patient will be provided with a safe and structured environment. Patient's physical health needs will be addressed by the Hospitalist. Hospitalist Consulted Labs including CBC, CMP, Lipid profile and Hemoglobin A1C ordered Social Assessment will be completed and the Agitator Operator will work with patient and family to ensure a suitable and safe disposition Medication adjustment will be made as clinically indicated Continue Olanzapine 15mg po qhs Start Vistaril 25mg po Q6hrs PRN Usual Wellness [facility]: - Start Trazodone 50 mg po QHS PRN The patient agreed on the treatment plan, understood the risk, benefit, alternative treatment, potential consequence of no treatment, and gave informed consent. Case staffed with Dr. Garg Medications and Allergies Medications and Allergies Allergies Allergy/AdvReac Type Severity Reaction Status Date / Time No Known Drug Allergies Allergy Unknown Verified 10/05/21 21:08 Home Medications Medication Instructions Recorded Confirmed Last Taken Type Albuterol Sulfate [Proair 90 mcg IH UNK 10/05/21 10/05/21 Unknown History Digihaler] AtorvaSTATin [Lipitor] 20 mg PO QHS 10/05/21 10/05/21 Unknown History Azithromycin [Zithromax] 250 mg PO QDAY 10/05/21 10/05/21 10/05/21 History Escitalopram [Lexapro] 1.5 tab PO DAILY 10/05/21 10/05/21 Unknown History Fenofibrate 160 mg PO DAILY 10/05/21 10/05/21 Unknown History Memantine [Namenda] 5 mg PO BID 10/05/21 10/05/21 Unknown History OLANzapine [ZyPREXA] 10 mg PO QHS 10/05/21 10/05/21 Unknown History buPROPion [Wellbutrin] 75 mg PO BID 10/05/21 10/05/21 Unknown History Active Meds: Active Medications Acetaminophen (Acetaminophen 325 Mg Tab) 650 mg PO Q6H PRN PRN Reason: Pain, Mild (1-3) Last Admin: 10/06/21 17:58 Dose: 650 mg Albuterol (Albuterol 2.5 Mg/3 Ml Nebu) 2.5 mg IH Q4H PRN PRN Reason: Shortness Of Breath Atorvastatin Calcium (Atorvastatin 20 Mg Tab) 20 mg PO QHS [facility] Last Admin: 10/09/21 21:53 Dose: 20 mg Bupropion HCl (Bupropion 75 Mg Tab) 75 mg PO BID [facility] Last Admin: 10/09/21 22:22 Dose: 75 mg Escitalopram Oxalate (Escitalopram 10 Mg Tab) 15 mg PO DAILY [facility] Last Admin: 10/09/21 11:45 Dose: 15 mg Fenofibrate (Fenofibrate 145 Mg Tab) 145 mg PO DAILY [facility] Last Admin: 10/10/21 09:18 Dose: 145 mg Hydroxyzine Pamoate (Hydroxyzine Pamoate 25 Mg Cap) 25 mg PO Q6H PRN PRN Reason: Anxiety Memantine (Memantine 5 Mg Tab) 5 mg PO BID [facility] Last Admin: 10/10/21 09:18 Dose: 5 mg Nicotine (Nicotine 21 Mg/24 Hr Patch) 21 mg TD QDAY [facility] Last Admin: 10/10/21 09:17 Dose: 21 mg Olanzapine (Olanzapine 7.5 Mg Tab) 15 mg PO QHS [facility] Last Admin: 10/09/21 21:53 Dose: 15 mg Trazodone HCl (Trazodone 50 Mg Tab) 50 mg PO QHS [facility] Last Admin: 10/09/21 21:52 Dose: 50 mg Results - Results Labs/Vitals: Laboratory Last Values WBC 8.5 K/mm3 (4.5-11.0) 10/06/21 00:50 RBC 4.27 M/mm3 (3.65-5.03) 10/06/21 00:50 Hgb 13.3 gm/dl (11.8-15.2) 10/06/21 00:50 Hct 39.9 % (35.5-45.6) 10/06/21 00:50 MCV 94 fl (84-94) 10/06/21 00:50 MCH 31 pg (28-32) 10/06/21 00:50 MCHC 33 % (32-34) 10/06/21 00:50 RDW 13.4 % (13.2-15.2) 10/06/21 00:50 Plt Count 190 K/mm3 (140-440) 10/06/21 00:50 Lymph % (Auto) 28.3 % (13.4-35.0) 10/06/21 00:50 [place] % (Auto) 10.8 % (0.0-7.3) H 10/06/21 00:50 Eos % (Auto) 3.7 % (0.0-4.3) 10/06/21 00:50 Baso % (Auto) 1.1 % (0.0-1.8) 10/06/21 00:50 Lymph # (Auto) 2.4 K/mm3 (1.2-5.4) 10/06/21 00:50 [place] # (Auto) 0.9 K/mm3 (0.0-0.8) H 10/06/21 00:50 Eos # (Auto) 0.3 K/mm3 (0.0-0.4) 10/06/21 00:50 Baso # (Auto) 0.1 K/mm3 (0.0-0.1) 10/06/21 00:50 Seg Neutrophils % 56.1 % (40.0-70.0) 10/06/21 00:50 Seg Neutrophils # 4.8 K/mm3 (1.8-7.7) 10/06/21 00:50 Sodium 140 mmol/L (137-145) 10/06/21 00:50 Potassium 4.2 mmol/L (3.6-5.0) 10/06/21 00:50 Chloride 102.7 mmol/L (98-107) 10/06/21 00:50 Carbon Dioxide 26 mmol/L (22-30) 10/06/21 00:50 Anion Gap 16 mmol/L 10/06/21 00:50 BUN 17 mg/dL (9-20) 10/06/21 00:50 Creatinine 0.7 mg/dL (0.8-1.3) L 10/06/21 00:50 Estimated GFR > 60 ml/min 10/06/21 00:50 BUN/Creatinine Ratio 24 % 10/06/21 00:50 Glucose 91 mg/dL (75-100) 10/06/21 00:50 POC Glucose 109 mg/dL (70-105) H 10/06/21 06:47 Hemoglobin A1c 5.5 % (4-6) 10/06/21 00:50 Calcium 9.4 mg/dL (8.4-10.2) 10/06/21 00:50 Total Bilirubin 0.20 mg/dL (0.1-1.2) 10/06/21 00:50 AST 16 units/L (5-40) 10/06/21 00:50 ALT 19 units/L (7-56) 10/06/21 00:50 Alkaline Phosphatase 74 units/L (35-129) 10/06/21 00:50 Total Protein 6.8 g/dL (6.3-8.2) 10/06/21 00:50 Albumin 3.8 g/dL (3.9-5) L 10/06/21 00:50 Albumin/Globulin Ratio 1.3 % 10/06/21 00:50 Triglycerides 104 mg/dL (2-149) 10/06/21 00:50 Cholesterol 219 mg/dL (50-199) H 10/06/21 00:50 LDL Cholesterol Direct 161 mg/dL (50-130) H 10/06/21 00:50 HDL Cholesterol 48 mg/dL (40-59) 10/06/21 00:50 Cholesterol/HDL Ratio 4.56 % 10/06/21 00:50 TSH 1.600 mlU/mL (0.270-4.200) 10/06/21 00:50 Last Vital Signs Temp 97.5 F L 10/10/21 08:27 Pulse 98 H 10/10/21 08:27 Resp 18 10/10/21 08:27 BP 136/86 10/10/21 08:27 Pulse Ox 92 10/10/21 08:27
[2021-10-10] MEDS: ESCITALOPRAM 10 MG TAB PO SCH (13:25)
[2021-10-10] MEDS: buPROPion 75 MG TAB PO SCH ×2 (13:26→22:17)
[2021-10-10] MEDS: traZODone 50 MG TAB PO SCH (22:17)
[2021-10-11 08:29] VITALS: BP 102/69
--- NOTE | 2021-10-11 09:44 | Progress Note ---
Subjective Date of service: 10/11/21 Principal diagnosis: Schizophrenia Subjective Comment: 10/11: The patient was seen in his room this morning. He continues to isolate. The patient states he feels better " I feel some better." he reports sleep and appetite as good. He continues to endorses intermittent non-commanding auditory hallucinations. Denies SI/HI/VH. No changes made today. 10/10: The patient was seen today. The patient states depression and anxiety is better. he continues to be isolative. He states sleep and appetite as good. he denies any current suicidal/homicidal ideation and denies hallucinations. 10/09:The patient was seen today. He presents with depressive mood, and isolating " mood not too good today." He reports anxiety rates as 6/10, continues to have auditory hallucination but non-commanding. REVIEW OF SYSTEMS Constitutional: Negative for weight loss ENT: Negative for stridor Respiratory: Negative for cough or hemoptysis All other systems reviewed and are negative MENTAL STATUS General Appearance and Behavior: age appropriate, good eye contact, cooperative with questioning and polite Cooperation: Cooperative Psychomotor Behavior: within normal limits Mood: ok Affect and affective range: Congruent with stated mood Thought Process: goal directed Thought Content: reality oriented Speech: Normal volume and Regular rate and rhythm Intellectual Functioning Average Suicidal Ideation: Denies Homicidal Ideation: Denies HI Hallucinations: intermittent Auditory Impulse Control: intact Insight and Judgment: Limited Memory: Normal Attention: Normal Orientation: alert and oriented Assessment Schizophrenia Treatment Plan Patient will be admitted for inpatient psychiatric evaluation, medication adjustment and close monitoring The patient's behavior, mood, sleep and appetite will be closely monitored. Patient will be enrolled in individual and group therapeutic sessions and encouraged to attend. Patient will be provided with a safe and structured environment. Patient's physical health needs will be addressed by the Hospitalist. Hospitalist Consulted Labs including CBC, CMP, Lipid profile and Hemoglobin A1C ordered Social Assessment will be completed and the Clinical Documentation Spec will work with patient and family to ensure a suitable and safe disposition Medication adjustment will be made as clinically indicated Continue Olanzapine 15mg po qhs Continue Vistaril 25mg po Q6hrs PRN Usual Wellness [facility]: - Start Trazodone 50 mg po QHS PRN The patient agreed on the treatment plan, understood the risk, benefit, alternative treatment, potential consequence of no treatment, and gave informed consent. Case staffed with Dr. Garg Medications and Allergies Medications and Allergies Allergies Allergy/AdvReac Type Severity Reaction Status Date / Time No Known Drug Allergies Allergy Unknown Verified 10/05/21 21:08 Home Medications Medication Instructions Recorded Confirmed Last Taken Type Albuterol Sulfate [Proair 90 mcg IH UNK 10/05/21 10/05/21 Unknown History Digihaler] AtorvaSTATin [Lipitor] 20 mg PO QHS 10/05/21 10/05/21 Unknown History Azithromycin [Zithromax] 250 mg PO QDAY 10/05/21 10/05/21 10/05/21 History Escitalopram [Lexapro] 1.5 tab PO DAILY 10/05/21 10/05/21 Unknown History Fenofibrate 160 mg PO DAILY 10/05/21 10/05/21 Unknown History Memantine [Namenda] 5 mg PO BID 10/05/21 10/05/21 Unknown History OLANzapine [ZyPREXA] 10 mg PO QHS 10/05/21 10/05/21 Unknown History buPROPion [Wellbutrin] 75 mg PO BID 10/05/21 10/05/21 Unknown History Active Meds: Active Medications Acetaminophen (Acetaminophen 325 Mg Tab) 650 mg PO Q6H PRN PRN Reason: Pain, Mild (1-3) Last Admin: 10/06/21 17:58 Dose: 650 mg Albuterol (Albuterol 2.5 Mg/3 Ml Nebu) 2.5 mg IH Q4H PRN PRN Reason: Shortness Of Breath Atorvastatin Calcium (Atorvastatin 20 Mg Tab) 20 mg PO QHS [facility] Last Admin: 10/10/21 22:17 Dose: 20 mg Bupropion HCl (Bupropion 75 Mg Tab) 75 mg PO BID [facility] Last Admin: 10/10/21 22:17 Dose: 75 mg Escitalopram Oxalate (Escitalopram 10 Mg Tab) 15 mg PO DAILY [facility] Last Admin: 10/10/21 13:25 Dose: 15 mg Fenofibrate (Fenofibrate 145 Mg Tab) 145 mg PO DAILY [facility] Last Admin: 10/10/21 09:18 Dose: 145 mg Hydroxyzine Pamoate (Hydroxyzine Pamoate 25 Mg Cap) 25 mg PO Q6H PRN PRN Reason: Anxiety Memantine (Memantine 10 Mg Tab) 5 mg PO Q12HR [facility] Stop: 08/07/22 22:01 Memantine (Memantine 5 Mg Tab) 5 mg PO BID [facility] Nicotine (Nicotine 21 Mg/24 Hr Patch) 21 mg TD QDAY [facility] Last Admin: 10/10/21 09:17 Dose: 21 mg Olanzapine (Olanzapine 7.5 Mg Tab) 15 mg PO QHS [facility] Last Admin: 10/10/21 22:18 Dose: 15 mg Trazodone HCl (Trazodone 50 Mg Tab) 50 mg PO QHS [facility] Last Admin: 10/10/21 22:17 Dose: 50 mg Results - Results Labs/Vitals: Laboratory Last Values WBC 8.5 K/mm3 (4.5-11.0) 10/06/21 00:50 RBC 4.27 M/mm3 (3.65-5.03) 10/06/21 00:50 Hgb 13.3 gm/dl (11.8-15.2) 10/06/21 00:50 Hct 39.9 % (35.5-45.6) 10/06/21 00:50 MCV 94 fl (84-94) 10/06/21 00:50 MCH 31 pg (28-32) 10/06/21 00:50 MCHC 33 % (32-34) 10/06/21 00:50 RDW 13.4 % (13.2-15.2) 10/06/21 00:50 Plt Count 190 K/mm3 (140-440) 10/06/21 00:50 Lymph % (Auto) 28.3 % (13.4-35.0) 10/06/21 00:50 [place] % (Auto) 10.8 % (0.0-7.3) H 10/06/21 00:50 Eos % (Auto) 3.7 % (0.0-4.3) 10/06/21 00:50 Baso % (Auto) 1.1 % (0.0-1.8) 10/06/21 00:50 Lymph # (Auto) 2.4 K/mm3 (1.2-5.4) 10/06/21 00:50 [place] # (Auto) 0.9 K/mm3 (0.0-0.8) H 10/06/21 00:50 Eos # (Auto) 0.3 K/mm3 (0.0-0.4) 10/06/21 00:50 Baso # (Auto) 0.1 K/mm3 (0.0-0.1) 10/06/21 00:50 Seg Neutrophils % 56.1 % (40.0-70.0) 10/06/21 00:50 Seg Neutrophils # 4.8 K/mm3 (1.8-7.7) 10/06/21 00:50 Sodium 140 mmol/L (137-145) 10/06/21 00:50 Potassium 4.2 mmol/L (3.6-5.0) 10/06/21 00:50 Chloride 102.7 mmol/L (98-107) 10/06/21 00:50 Carbon Dioxide 26 mmol/L (22-30) 10/06/21 00:50 Anion Gap 16 mmol/L 10/06/21 00:50 BUN 17 mg/dL (9-20) 10/06/21 00:50 Creatinine 0.7 mg/dL (0.8-1.3) L 10/06/21 00:50 Estimated GFR > 60 ml/min 10/06/21 00:50 BUN/Creatinine Ratio 24 % 10/06/21 00:50 Glucose 91 mg/dL (75-100) 10/06/21 00:50 POC Glucose 109 mg/dL (70-105) H 10/06/21 06:47 Hemoglobin A1c 5.5 % (4-6) 10/06/21 00:50 Calcium 9.4 mg/dL (8.4-10.2) 10/06/21 00:50 Total Bilirubin 0.20 mg/dL (0.1-1.2) 10/06/21 00:50 AST 16 units/L (5-40) 10/06/21 00:50 ALT 19 units/L (7-56) 10/06/21 00:50 Alkaline Phosphatase 74 units/L (35-129) 10/06/21 00:50 Total Protein 6.8 g/dL (6.3-8.2) 10/06/21 00:50 Albumin 3.8 g/dL (3.9-5) L 10/06/21 00:50 Albumin/Globulin Ratio 1.3 % 10/06/21 00:50 Triglycerides 104 mg/dL (2-149) 10/06/21 00:50 Cholesterol 219 mg/dL (50-199) H 10/06/21 00:50 LDL Cholesterol Direct 161 mg/dL (50-130) H 10/06/21 00:50 HDL Cholesterol 48 mg/dL (40-59) 10/06/21 00:50 Cholesterol/HDL Ratio 4.56 % 10/06/21 00:50 TSH 1.600 mlU/mL (0.270-4.200) 10/06/21 00:50 Last Vital Signs Temp 97.3 F L 10/11/21 08:28 Pulse 94 H 10/11/21 08:28 Resp 24 10/11/21 08:28 BP 102/69 10/11/21 08:28 Pulse Ox 100 10/11/21 08:28
[2021-10-11] MEDS: MEMANTINE 10 MG TAB PO SCH ×2 (10:00→21:53)
[2021-10-11] MEDS: buPROPion 75 MG TAB PO SCH ×2 (10:34→21:54)
[2021-10-11] MEDS: ESCITALOPRAM 10 MG TAB PO SCH (10:35)
[2021-10-11] MEDS: NICOTINE 21 MG/24 HR PATCH TD SCH (10:35)
[2021-10-11] MEDS: FENOFIBRATE 145 MG TAB PO SCH (10:35)
[2021-10-11] MEDS: ACETAMINOPHEN 325 MG TAB PO PRN (10:41)
[2021-10-11] MEDS ORDERED: MEMANTINE 10 MG TAB PO ONE (14:00)
--- NOTE | 2021-10-11 19:20 | Progress Note ---
Assessment and Plan - Patient Problems (1) Vascular dementia with behavioral disturbance Current Visit: Yes Status: Acute Plan to address problem: Verbal prompting, verbal redirection, benzodiazepine therapy as clinically indicated. (2) Cerebral atherosclerosis Current Visit: Yes Status: Acute Plan to address problem: Risk factor reduction, antiplatelet therapy as clinically indicated. (3) Hypertension Current Visit: Yes Status: Acute Qualifiers: Hypertension type: primary hypertension Qualified Code(s): I10 - Essential (primary) hypertension Plan to address problem: Monitor blood pressure every shift, continue medical management (4) Hyperlipidemia Current Visit: Yes Status: Acute Qualifiers: Hyperlipidemia type: mixed hyperlipidemia Qualified Code(s): E78.2 - Mixed hyperlipidemia Plan to address problem: Statin therapy, supportive care. (5) Asthma Current Visit: Yes Status: Acute Plan to address problem: No acute exacerbation at this time, supportive care, bronchodilator therapy as clinically indicated. (6) Bipolar disorder Current Visit: Yes Status: Acute Plan to address problem: Continue medical management, supportive care. (7) Schizophrenia Current Visit: Yes Status: Acute Qualifiers: Schizophrenia type: other Qualified Code(s): F20.89 - Other schizophrenia; F20.8 - Other schizophrenia Plan to address problem: Continue medical medical management, supportive care. (8) Advance care planning Current Visit: Yes Status: Acute Plan to address problem: Disease education data, care plan discussed, diagnosis discussed, prognosis discussed, patient is full code, +30 minutes. (9) Preventative health care Current Visit: Yes Status: Acute Plan to address problem: Patient counseled regarding smoking cessation, risk factor reduction, outpatient follow-up with primary care physician for all age and risk factor appropriate screening test. +30 minutes. (10) Nicotine dependence Current Visit: Yes Status: Acute Qualifiers: Nicotine product type: cigarettes Substance use status: in withdrawal Qualified Code(s): F17.213 - Nicotine dependence, cigarettes, with withdrawal Plan to address problem: Smoke cessation counseled, nicotine transdermal patch daily, remove nightly History Interval history: 65 YO Male with Vascular Dementia with behavioral disturbance, Cerebral Atherosclerosis, HTN, HLD, Mild Intermittent Asthma, Nicotine Dependence, Schizophrenia, Bipolar Disorder admitted to [facility] for psychiatric stabilization. Patient seen and evaluated in the recreation room. Patient appears to be at baseline level of cognition and function. No reported nursing events. Hospitalist Physical - Constitutional Vitals: Temp Pulse Resp BP Pulse Ox 97.3 F L 94 H 24 102/69 100 10/11/21 08:28 10/11/21 08:28 10/11/21 08:28 10/11/21 08:28 10/11/21 08:28 General appearance: Present: mild distress - EENT Eyes: Present: PERRL ENT: hearing decreased - Neck Neck: Present: supple - Respiratory Respiratory effort: normal Respiratory: bilateral: diminished - Cardiovascular Rhythm: regular Heart Sounds: Present: S1 & S2 - Extremities Extremities: no ischemia Peripheral Pulses: within normal limits - Abdominal General gastrointestinal: soft, non-tender, non-distended - Integumentary Integumentary: Present: clear, dry - Psychiatric Psychiatric: cooperative - Neurologic Neurologic: CNII-XII intact Results - Labs CBC & Chem 7: 10/06/21 00:50 10/06/21 00:50 Labs: Laboratory Last Values WBC 8.5 K/mm3 (4.5-11.0) 10/06/21 00:50 RBC 4.27 M/mm3 (3.65-5.03) 10/06/21 00:50 Hgb 13.3 gm/dl (11.8-15.2) 10/06/21 00:50 Hct 39.9 % (35.5-45.6) 10/06/21 00:50 MCV 94 fl (84-94) 10/06/21 00:50 MCH 31 pg (28-32) 10/06/21 00:50 MCHC 33 % (32-34) 10/06/21 00:50 RDW 13.4 % (13.2-15.2) 10/06/21 00:50 Plt Count 190 K/mm3 (140-440) 10/06/21 00:50 Lymph % (Auto) 28.3 % (13.4-35.0) 10/06/21 00:50 [place] % (Auto) 10.8 % (0.0-7.3) H 10/06/21 00:50 Eos % (Auto) 3.7 % (0.0-4.3) 10/06/21 00:50 Baso % (Auto) 1.1 % (0.0-1.8) 10/06/21 00:50 Lymph # (Auto) 2.4 K/mm3 (1.2-5.4) 10/06/21 00:50 [place] # (Auto) 0.9 K/mm3 (0.0-0.8) H 10/06/21 00:50 Eos # (Auto) 0.3 K/mm3 (0.0-0.4) 10/06/21 00:50 Baso # (Auto) 0.1 K/mm3 (0.0-0.1) 10/06/21 00:50 Seg Neutrophils % 56.1 % (40.0-70.0) 10/06/21 00:50 Seg Neutrophils # 4.8 K/mm3 (1.8-7.7) 10/06/21 00:50 Sodium 140 mmol/L (137-145) 10/06/21 00:50 Potassium 4.2 mmol/L (3.6-5.0) 10/06/21 00:50 Chloride 102.7 mmol/L (98-107) 10/06/21 00:50 Carbon Dioxide 26 mmol/L (22-30) 10/06/21 00:50 Anion Gap 16 mmol/L 10/06/21 00:50 BUN 17 mg/dL (9-20) 10/06/21 00:50 Creatinine 0.7 mg/dL (0.8-1.3) L 10/06/21 00:50 Estimated GFR > 60 ml/min 10/06/21 00:50 BUN/Creatinine Ratio 24 % 10/06/21 00:50 Glucose 91 mg/dL (75-100) 10/06/21 00:50 POC Glucose 109 mg/dL (70-105) H 10/06/21 06:47 Hemoglobin A1c 5.5 % (4-6) 10/06/21 00:50 Calcium 9.4 mg/dL (8.4-10.2) 10/06/21 00:50 Total Bilirubin 0.20 mg/dL (0.1-1.2) 10/06/21 00:50 AST 16 units/L (5-40) 10/06/21 00:50 ALT 19 units/L (7-56) 10/06/21 00:50 Alkaline Phosphatase 74 units/L (35-129) 10/06/21 00:50 Total Protein 6.8 g/dL (6.3-8.2) 10/06/21 00:50 Albumin 3.8 g/dL (3.9-5) L 10/06/21 00:50 Albumin/Globulin Ratio 1.3 % 10/06/21 00:50 Triglycerides 104 mg/dL (2-149) 10/06/21 00:50 Cholesterol 219 mg/dL (50-199) H 10/06/21 00:50 LDL Cholesterol Direct 161 mg/dL (50-130) H 10/06/21 00:50 HDL Cholesterol 48 mg/dL (40-59) 10/06/21 00:50 Cholesterol/HDL Ratio 4.56 % 10/06/21 00:50 TSH 1.600 mlU/mL (0.270-4.200) 10/06/21 00:50 Zambrano/IV: Voiding Method Toilet Active Medications - Current Medications Current Medications: Generic Name Dose Route Start Last Admin Trade Name Freq PRN Reason Stop Dose Admin Acetaminophen 650 mg 10/06/21 15:37 10/11/21 10:41 Acetaminophen 325 Mg Tab PO 650 mg Q6H PRN Administration Pain, Mild (1-3) Albuterol 2.5 mg 10/06/21 13:36 Albuterol 2.5 Mg/3 Ml Nebu IH Q4H PRN Shortness Of Breath Atorvastatin Calcium 20 mg 10/06/21 22:00 10/10/21 22:17 Atorvastatin 20 Mg Tab PO 20 mg QHS RABIA Administration Bupropion HCl 75 mg 10/06/21 22:00 10/11/21 10:34 Bupropion 75 Mg Tab PO 75 mg BID RABIA Administration Escitalopram Oxalate 15 mg 10/07/21 10:00 10/11/21 10:35 Escitalopram 10 Mg Tab PO 15 mg DAILY RABIA Administration Fenofibrate 145 mg 10/07/21 10:00 10/11/21 10:35 Fenofibrate 145 Mg Tab PO 145 mg DAILY RABIA Administration Hydroxyzine Pamoate 25 mg 10/09/21 13:00 Hydroxyzine Pamoate 25 Mg Cap PO Q6H PRN Anxiety Memantine 5 mg 10/11/21 10:00 10/11/21 10:00 Memantine 10 Mg Tab PO 10/11/21 22:01 Not Given Q12HR RABIA Memantine 5 mg 10/12/21 10:00 Memantine 5 Mg Tab PO BID RABIA Nicotine 21 mg 10/06/21 10:00 10/11/21 10:35 Nicotine 21 Mg/24 Hr Patch TD 21 mg QDAY RABIA Administration Olanzapine 15 mg 10/07/21 22:00 10/10/21 22:18 Olanzapine 7.5 Mg Tab PO 15 mg QHS RABIA Administration Trazodone HCl 50 mg 10/05/21 22:00 10/10/21 22:17 Trazodone 50 Mg Tab PO 50 mg QHS RABIA Administration Nutrition/Malnutrition Assess - Dietary Evaluation Nutrition/Malnutrition Findings: Nutrition Notes Start: 10/07/21 18:00 Freq: Status: Active Protocol: Document 10/07/21 18:00 ELENA (Rec: 10/07/21 18:10 ELENA [id number]) Nutrition Notes Need for Assessment generated from: MD Order Initial or Follow up Assessment Other Pertinent Diagnosis Schizophrenia. Current Diet Regular Diet (since B 10/06). Labs/Tests 10/07: Crea 0.7. Pertinent Medications 10/07: Nutritionally unremarkable. Height 6 ft 2 in Weight 95.254 kg [place] Body Weight (kg) 86.36 BMI 26.9 Intake Prior to Admission Good Weight change and time frame Pt denies having loss body weight CAN[place] RAISER. Weight Status Overweight Subjective/Other Information RD consult for Poor Oral Intake assessment. Pt's PO intake of meals has been Good (100%) and well tolerated, according to ADL notes. Pr is on Room Air, O2 saturation @ 93%, according to Vital Signs notes. Percent of energy/protein needs met: Prescribed Regular Diet provides for energy/protein needs (2,289 Kcal/89 g) during LOS. Burn Absent Trauma Absent GI Symptoms None Food Allergy No Skin Integrity/Comment Assessment WNL. Current % PO Good (75-100%) Minimum of two criteria No Fluid Accumulation N/A Reduced Online Content Editor Strength N/A (non-severe) Protein-Calorie Malnutrition N\A #1 Nutrition Diagnosis No nutrition diagnosis at this time Is patient on ventilator? No Is Patient Ambulatory and/or Out of Bed Yes REE-([facility]-ambulatory/OOB) [ [id number]] Calculation Used for Recommendations [facility] Additional Notes Protein: 0.8-1 g/Kg ABW; 76-95 g/day. Fluids: 1 ml/Kcal, or as per MD. Nutrition Intervention Change Diet Order: Continue Regular Diet as tolerated. Follow-Up By: 10/14/21 Additional Comments Continue monitoring food tolerance, %PO intake of meals , and BM.
[2021-10-11] MEDS: traZODone 50 MG TAB PO SCH (21:51)
[2021-10-12] MEDS: NICOTINE 21 MG/24 HR PATCH TD SCH (09:05)
[2021-10-12] MEDS: FENOFIBRATE 145 MG TAB PO SCH (09:05)
[2021-10-12] MEDS: ESCITALOPRAM 10 MG TAB PO SCH (09:06)
--- NOTE | 2021-10-12 09:31 | Discharge Summary ---
Providers - Providers Date of Admission: 10/06/21 00:02 Date of discharge: 10/12/21 Attending physician: NAYELI CARRASCO MD 10/05/21 21:19 Consult to Physician [CONS] Routine Comment: Consulting Provider: ORLANDO CASTLE Physician Instructions: Reason For Exam: New admission 10/07/21 15:28 Consult to Dietitian/Nutrition [CONS] Stat Physician Instructions: Reason For Exam: poor po intake/education Reason for Consult: Poor oral intake Primary care physician: EMT Hospitalization Admitting Diagnosis: F20.9 - SCHIZOPHRENIA, UNSPECIFIED Condition: Stable Hospital course: The patient was provided inpatient psychiatric treatment with safe and supportive environment, group/individual therapy, psychiatric medication, medication adjustment, adverse effect monitor, medical evaluation, medical treatment, social service assessment, social support meeting, placement assessment and psycho-education. The patients mood, cognition, behavior, motivation, compliance to treatment and appreciation on family/social support are improved and stabilized. At the time of discharge, the patient had no suic idal ideas, no homicidal ideas, no aggressive thoughts, no endangering behavior and no debilitating adverse effects. The patient agreed on the treatment plan, understood the risk, benefit, alternative treatment, potential consequence of no treatment, and gave informed consent. Progress Note: 10/11: The patient was seen in his room this morning. He continues to isolate. T he patient states he feels better " I feel some better." he reports sleep and appetite as good. He continues to endorses intermittent non-commanding auditory hallucinations. Denies SI/HI/VH. No changes made today. 10/10: The patient was seen today. The patient states depression and anxiety is better. he continues to be isolative. He states sleep and appetite as good. he d enies any current suicidal/homicidal ideation and denies hallucinations. 10/09:The patient was seen today. He presents with depressive mood, and isolating " mood not too good today." He reports anxiety rates as 6/10, continues to have auditory hallucination but non-commanding. Disposition: 30 STILL A PATIENT Allergies/Adverse Reactions: Allergies No Known Drug Allergies Allergy (Verified 10/05/21 21:08) Unknown Vital Signs: Last Vital Signs Temp 97.3 F L 10/11/21 08:28 Pulse 94 H 10/11/21 08:28 Resp 24 10/11/21 08:28 BP 102/69 10/11/21 08:28 Pulse Ox 100 10/11/21 08:28 Last Lab: Laboratory Last Values WBC 8.5 K/mm3 (4.5-11.0) 10/06/21 00:50 RBC 4.27 M/mm3 (3.65-5.03) 10/06/21 00:50 Hgb 13.3 gm/dl (11.8-15.2) 10/06/21 00:50 Hct 39.9 % (35.5-45.6) 10/06/21 00:50 MCV 94 fl (84-94) 10/06/21 00:50 MCH 31 pg (28-32) 10/06/21 00:50 MCHC 33 % (32-34) 10/06/21 00:50 RDW 13.4 % (13.2-15.2) 10/06/21 00:50 Plt Count 190 K/mm3 (140-440) 10/06/21 00:50 Lymph % (Auto) 28.3 % (13.4-35.0) 10/06/21 00:50 [place] % (Auto) 10.8 % (0.0-7.3) H 10/06/21 00:50 Eos % (Auto) 3.7 % (0.0-4.3) 10/06/21 00:50 Baso % (Auto) 1.1 % (0.0-1.8) 10/06/21 00:50 Lymph # (Auto) 2.4 K/mm3 (1.2-5.4) 10/06/21 00:50 [place] # (Auto) 0.9 K/mm3 (0.0-0.8) H 10/06/21 00:50 Eos # (Auto) 0.3 K/mm3 (0.0-0.4) 10/06/21 00:50 Baso # (Auto) 0.1 K/mm3 (0.0-0.1) 10/06/21 00:50 Seg Neutrophils % 56.1 % (40.0-70.0) 10/06/21 00:50 Seg Neutrophils # 4.8 K/mm3 (1.8-7.7) 10/06/21 00:50 Sodium 140 mmol/L (137-145) 10/06/21 00:50 Potassium 4.2 mmol/L (3.6-5.0) 10/06/21 00:50 Chloride 102.7 mmol/L (98-107) 10/06/21 00:50 Carbon Dioxide 26 mmol/L (22-30) 10/06/21 00:50 Anion Gap 16 mmol/L 10/06/21 00:50 BUN 17 mg/dL (9-20) 10/06/21 00:50 Creatinine 0.7 mg/dL (0.8-1.3) L 10/06/21 00:50 Estimated GFR > 60 ml/min 10/06/21 00:50 BUN/Creatinine Ratio 24 % 10/06/21 00:50 Glucose 91 mg/dL (75-100) 10/06/21 00:50 POC Glucose 109 mg/dL (70-105) H 10/06/21 06:47 Hemoglobin A1c 5.5 % (4-6) 10/06/21 00:50 Calcium 9.4 mg/dL (8.4-10.2) 10/06/21 00:50 Total Bilirubin 0.20 mg/dL (0.1-1.2) 10/06/21 00:50 AST 16 units/L (5-40) 10/06/21 00:50 ALT 19 units/L (7-56) 10/06/21 00:50 Alkaline Phosphatase 74 units/L (35-129) 10/06/21 00:50 Total Protein 6.8 g/dL (6.3-8.2) 10/06/21 00:50 Albumin 3.8 g/dL (3.9-5) L 10/06/21 00:50 Albumin/Globulin Ratio 1.3 % 10/06/21 00:50 Triglycerides 104 mg/dL (2-149) 10/06/21 00:50 Cholesterol 219 mg/dL (50-199) H 10/06/21 00:50 LDL Cholesterol Direct 161 mg/dL (50-130) H 10/06/21 00:50 HDL Cholesterol 48 mg/dL (40-59) 10/06/21 00:50 Cholesterol/HDL Ratio 4.56 % 10/06/21 00:50 TSH 1.600 mlU/mL (0.270-4.200) 10/06/21 00:50 Core Measure Documentation - Palliative Care Palliative Care/ Comfort Measures: Not Applicable - Core Measures Any of the following diagnoses?: none - VTE Discharge Requirements Deep Vein Thrombosis/Pulmonary Embolism Present on Admission: No Exam - Constitutional Vitals: Temp Pulse Resp BP Pulse Ox 97.3 F L 94 H 24 102/69 100 10/11/21 08:28 10/11/21 08:28 10/11/21 08:28 10/11/21 08:28 10/11/21 08:28 Plan Activity: advance as tolerated Diet: regular Care Plan Goals: The patient should be compliant with medications, not to use drugs and not to drink alcohol.The patient understands that if suicidal ideas, homicidal ideas, or any endangering thoughts/behavior arise, they should immediately seek for emergent assistance including but not limited to crisis hot line and emergency room. Follow up with outpatient Psychiatrist and PCP within 7 - 14 days of discharge. Plan of Treatment: Maintain good and stable mental health. Follow up with: PRIMARY CARE,MD [Primary Care Provider] - 7 Days Prescriptions: traZODone [Desyrel] 50 mg PO QHS 30 Days #30 tablet OLANzapine [ZyPREXA] 15 mg PO QHS 30 Days #30 tablet Escitalopram [Lexapro] 15 mg PO DAILY 30 Days #30 tablet hydrOXYzine PAMOATE [Vistaril] 25 mg PO Q6H PRN 30 Days #60 capsule PRN Reason: Anxiety buPROPion [Wellbutrin] 75 mg PO BID 30 Days #60
[2021-10-12] MEDS: buPROPion 75 MG TAB PO SCH (09:53)
[2021-10-12] MEDS: ACETAMINOPHEN 325 MG TAB PO PRN (09:54)
[2021-10-12] MEDS ORDERED: MEMANTINE 5 MG TAB PO SCH (10:00)
== END 2021-10-12 11:00 | disposition home or self-care (01) | DRG 885 ==
LOC: UNDOADMIN 14:48 → 3A 14:48 → 5A 10-06 00:02
PROVIDERS: ADMIT Psychiatry & Neurology Psychiatry; ATTEND Psychiatry & Neurology Psychiatry
DX: F20.9 Schizophrenia, unspecified (principal); F41.8 Other specified anxiety disorders; I10 Essential (primary) hypertension; F01.51 Vascular dementia, unspecified severity, with behavioral disturbance; I67.2 Cerebral atherosclerosis; J45.909 Unspecified asthma, uncomplicated; E78.2 Mixed hyperlipidemia; F17.213 Nicotine dependence, cigarettes, with withdrawal; F31.9 Bipolar disorder, unspecified; Z82.49 Family history of ischemic heart disease and other diseases of the circulatory system
CPT/HCPCS: 36415; 80053; 80061; 82962; 83036; 84443; 85025; G0378